=== PATIENT | female | born 1955 | race Caucasian/White ===

== ENCOUNTER 2023-12-25 13:14 | Inpatient (IN) | payer MEDICARE, BC, SELFPAY ==
[2023-12-25] VITALS (11 sets, daily range): BP systolic 109–161; BP diastolic 35–125; BMI 49.2
[2023-12-25 13:25] LABS: Glucose - Point of Care 82 mg/dl (70-99)
--- NOTE | 2023-12-25 14:30 | WOUNDNOTE ---
R BREAST (LATERAL SKIN FOLD)
--- NOTE | 2023-12-25 14:33 | WOUNDNOTE ---
L BREAST/UPPER ARM
--- NOTE | 2023-12-25 14:34 | WOUNDNOTE ---
R ANKLE/HEEL (LATERAL)
--- NOTE | 2023-12-25 14:39 | WOUNDNOTE ---
WO RN note: Patient admitted with CHF, DM. Patient transferred from [facility]. Patient having a cardiac cath today. Patient lives at home with her and stated she is current with VN.
See H&P for complete history.
PMH: L breast cancer s/p chemo and radiation, with lymph node removal 2003, C section x2, facture neck at age 13, neck pain, ex-smoker, sleep apnea, pneumonia, bronchitis, aortic stenosis, edema, HTN, venous stasis, stomach ulcers, diarrhea, renal
insufficiency, UTI, uterine fibroids, obesity, IDDM
Wound Location and type/assessment: Patient admitted with: multiple scattered scabbed scratch mayer on her body from dry skin and habit of scratching. L breast few small dermal ulcers from patient scratching (smaller then last wound photo from
05/2023), R lateral ankle dry scab suspect from pressure (stage 2 vs unstageable) from her recliner chair at home (she sleeps in a recliner) and R lateral scabbed skin fissure. Mild skin fold MASD breasts, abdominal/groin, sacral crease.
Appetite: currently NPO for procedure.
Pressure redistribution devices in place: [employer] Accumax. Patient turns self in bed.
Plan: Silicone border foam changed on L breast. Silicone border foam applied to R lateral ankle and R heel. Assisted VINNIE Patel and ROSA ELENA Swan with switching patient's bed to a [facility] wide air bed (patient transferred with walker and 2
assist). Heels off bed with pillow. Air chair cushion given. Instructed patient to make follow up appointment with her DIRECTOR OF EARLY CHILDHOOD EDUCATION for breast exam, mammogram.
Confirmed orders with SKINNY Gale and discussed with nurse.
Care plan to be updated and will follow as needed.
Recommended patient make appointment with cylinder press operator helper.
--- NOTE | 2023-12-25 15:03 | CM ---
Addendum entered by Stacy Felder RN 12/25/23 16:31:
Pending discharge transport was arranged with [facility] for pickup time of 3pm.
Addendum entered by Stacy Felder RN 12/25/23 15:12:
I spoke to Johanny at [facility] to confirm bed, . Johanny is contractor general engineering over the weekend if there are any needs.
Original Note:
Chart reviewed. Patient was a transfer from [facility] for a cardiac cath. Patient was living with her in a 2 ST, 1st floor set up, ambulates with a rolling walker. Patient was not current with VN but has used [facility] in the past. Patient was
setup to go to [facility] after her cardiac cath at [facility]. Patient will need ambulance transport set up. Report to be called to [phone], . Plan is for the patient to be discharged to [facility]
[place].
--- NOTE | 2023-12-25 15:45 | W.PN.CARDCBS ---
Today's Communication / Plan
-
LHC today, will need oupt w/u for valvular disease
wound care c/s
continue to hold BB for now trend bp
Impression / Plan
-
This is a summary, please see scanned H&P
PCP: Yrn Green MD
68 yo morbidly obese female, PMH severe valvular heart disease, HTN, NIDDM fo 20yrs, HLD, ANGELA untreated, obesity hypoventilation syndrome on home O2 2L, slip/fall 05/2023. She had another mechanical slip/fall and called 911, she presented to [facility] on
12/21/23. She had mild troponin elevation most likely d/t lying on floor for hours. She was also noted to have bradycardia with reported 2-1 AVB, BB was held. She is being transferred for [facility] today. She was evaluated for SNF placement prior to
transfer and is set up with a bed at [facility]. She has a severe ASA allergy with hive and ? anaphylaxis requiring hospitalization.
IMPRESSION/PLAN:
#Severe valvular heart disease - Echo with NL EF, severe p/m 70/41mmHg, and severe MS p/m 32/14mmHg
[facility] today diagnostic only d/t severe ASA allergy
outpt w/u for any valvular intervention, if she is even deemed a candidate with her comorbidities
#Bradycardia - 1deg AVB, asymptomatic, will continue to hold metoprolol xl 25mg, Check EKG now, will need outpt monitor
#Chronic respiratory failure/Obesity hypoventilation syndrome - continue 2L nc, HOB 30deg at all times
#NIDDM - continue lantus 80 bid, SSI, Check A1c 9.6% 09/2023
#HTN - continue lisinopril, trend bp while holding BB may need increased dose
#Mechanical Fall - PT/OT eval at [facility] plan for SNF at d/c
# ANGELA - 2L nc, will need sleep study as outpt
#Hyponatremia/Hyperkalemia - will trend
#Chronic UTI - odifours urine will check UA
#Psoriasis/wounds - wound care c/s
#CKD3a - trend Cr post cath, Cr 1.3
#Morbid obesity d/t excessive calories - wt loss encouraged
#chronic pain syndrome - PRN hydrocodone
#Dispo planning - after cath, plan for d/c SNF in am, CM working on transport
Progress Note - Director Of Billing
Subjective
Date of Service: December 25, 2023
no cp, sob at baseline, oob to commode with 2 person assist
Objective
Vital Signs and I&O:
Vital Signs
Temp Pulse Resp BP Pulse Ox
98.0 F 44 24 155/85 95
12/25/23 13:33 12/25/23 13:32 12/25/23 13:33 12/25/23 13:32 12/25/23 14:03
Vital Signs
Temp Pulse Resp BP Pulse Ox
98.0 F 44 24 155/85 95
12/25/23 13:33 12/25/23 13:32 12/25/23 13:33 12/25/23 13:32 12/25/23 14:03
Physical Exam
Physical Exam
AOX3, mild respiratory distress
S1, S2, RRR, /V harsh holosystolic murmur
fine bibasilar rales, no wheeze
SNTND bsx4 obese
multiple scratch mayer/wounds over entire body
[2023-12-25 16:06] LABS: Urine Albumin Trace (Neg - Trace); Urine Bilirubin Negative (Negative); Urine Character Clear (Clear); Urine Color Yellow; Urine Glucose Negative (Negative); Urine Ketone Negative (Negative); Urine Leukocyte 1+ (Negative); Urine Nitrite Positive (Negative); Urine Occult Blood Trace (Negative); Urine Urobilinogen Negative (Neg - 1+)
[2023-12-25 16:24] LABS: Urine Bacteria Many (Negative); Urine Red Blood Cell 0-2 /HPF (0-2)
--- NOTE | 2023-12-25 16:55 | ITS.CL.CATH ---
[facility] - Catheterization
Cardiac Catheterization
Procedure Report:
CARDIAC CATHETERIZATION REPORT
Date of Procedure: 12/25/2023
Referring: Giacomo Hurley MD
Indication: CHF
HEMODYNAMIC DATA
AO: 150/68
LV: Not done
LEFT VENTRICULOGRAPHY: Not done
CORONARY ANGIOGRAPHY
Dominance: Normal
Left Main: Normal
LAD: 30% proximal LAD stenosis with 60% mid LAD stenosis just distal to the takeoff of the large second diagonal branch.
Circumflex: Mild luminal irregularities
RCA: Large dominant mildly ectatic vessel with tandem 20% and 50-60% proximal stenoses. There is a 50% distal RCA lesion just past the crux. The large PDA and large RPL have mild luminal irregularities
Closure Device: None-the procedure was performed via the right radial artery using 5 Sinhala catheter
Radiation (mGy): 537
DAP (cm2.Gy): 40
Fluoroscopy time: 6.2 minutes
CONCLUSIONS
1: Known severe aortic stenosis not invasively evaluated
2: Noncritical CAD
3. Will electively evaluate for TAVR- she will undergo CTA in a few weeks then CTS evaluation
Copy to: Giacomo Hurley MD, Yrn Green MD
Jose Miguel Kauffman MD, [facility], [facility]
[2023-12-25] MEDS: CELEXA 20 MG PO (18:17)
[2023-12-25] MEDS: STERILE WATER FOR INJECTION 10 ML IV (18:17)
[2023-12-25] MEDS: ROCEPHIN 1000 MG IV (18:17)
--- NOTE | 2023-12-25 19:20 | PTCARENOTE ---
Pt received from [facility]. Pt denies any discomfort. Telemetry shows sinus bradycardia with first degree AV block at a rate @40's. Pt NPO for cardiac cath, accuchecks @80's. Pt seen by Liz Moreno RN for assessment of multiple skin issues, pt
transferred to [facility].Pt noted to have foul smelling cloudy orange urine sent for culture, positive for UTI, IV antibiotic started. Pt had cardiac cath via right radial site, radial band in place. No sign of bleeding or hematoma. Pt
OOB with assist of 2 and walker, pt steady on her feet but fell several days ago and is on fall precautions.
Plan to transfer to [facility] for rehab on 12/26/23 with lemon picker arranged for 3pm.
[2023-12-25 21:31] LABS: Glucose - Point of Care 146 mg/dl (70-99)
[2023-12-25] MEDS: LOVENOX 40 MG SC (22:52)
[2023-12-25] MEDS: HYDROPHOR 1 APPLIC TOPICAL (22:53)
[2023-12-25] MEDS: DESENEX/MITRAZOL/ZEASORB 1 APPLIC TOPICAL (22:53)
[2023-12-25] MEDS: LANTUS 0.800000000000000044 UNITS SC (22:57)
--- NOTE | 2023-12-25 23:22 | PTCARENOTE ---
Pt rec'd at change of shift awake,alert oriented. Sinus with first degree on telemetry. right radial band removed over several hours after bleeding occurred when taking out 3cc at 1999. Right radial site now clean and dry with no active bleeding or
hematoma present. Limb restriction reviewed with pt. Pt's HS blood sugar 146 requested HS snack. Pt given snack then given HS insulin. Pt incontinent of strong urine, perineal care given. Call aguilar placed within reach.
[2023-12-26 05:10] VITALS: BP 119/44
[2023-12-26] MEDS: VENTOLIN NEBULES 2.5 MG INH (05:56)
--- NOTE | 2023-12-26 06:24 | PTCARENOTE ---
Pt incont large amt of urine. complete bed bath given with bed linens changed. Pure wick placed. Pt has audible wheezing this morning throughout with harsh non prod cough. mn tx order obtained and given by resp. Unable to obtain am labs, phlebotomy
called for assist. call aguilar within pts reach.
pt remains sinus in 40's.
[2023-12-26 07:35] VITALS: BP 121/42
--- NOTE | 2023-12-26 07:45 | W.PN.UPDATE ---
Addendum entered and electronically signed by WANDA Gregorio 12/26/23 11:16:
Patient having periods of 2-1 heart block. Discharge plan canceled.
Addendum entered and electronically signed by Dewayne Joiner MD 12/26/23 09:59:
Patient seen and examined in collaboration with [employer]; agree with below.
-Stable for transfer to [facility] today.
-Outpatient TAVR evaluation.
Addendum entered and electronically signed by WANDA Gregorio 12/26/23 07:54:
Abnormal urinalysis
-The patient denies symptoms
-Urine culture pending
-She received 1 dose of Rocephin yesterday
Original Note:
Update Note
Progress Note Update
Background: 68F transferred from [facility]. She initially presented there for mechanical slip and fall. She was transferred for [facility].
Aortic stenosis, severe
-Not invasively evaluated by [facility] yesterday
-Right wrist site stable without hematoma
-Peak/mean gradient 70/41 mmHg
-The plan is for outpatient TAVR evaluation
Mitral stenosis, severe
-Peak/mean gradient 32/14 mmHg
Noncritical CAD by [facility], diagnostic cardiac catheterization 12/25/2023 due to ASA allergy
Bradycardia, hold metoprolol succinate, outpatient monitoring by her primary pharmacy service associate
Chronic respiratory failure in the setting of obesity/hypoventilation syndrome, continue 2 L nasal cannula
Type 2 diabetes mellitus requiring insulin, continue Lantus, HgbA1c pending, 6.7% 04/2023
Morbid obesity, BMI 49, she would benefit from weight loss, this affects all aspects of her care
Dispo: DC to SNF this afternoon
--- NOTE | 2023-12-26 07:54 | W.DS.TRANS ---
Addendum entered and electronically signed by Dewayne Joiner MD 12/26/23 09:58:
Agree with below.
Addendum entered and electronically signed by WANDA Gregorio 12/26/23 09:19:
Correction to below. Potassium supplementation discontinued as potassium is 5.0 this morning.
Original Note:
DC Summary - Communications Associate
-
Discharge Instructions:
Discharge Diagnosis/Procedures Cardiac catheterization
Diet Diabetic, Carb Controlled,Low Cholesterol
Activity No strenuous activity
Additional Activity See attached instructions.
Driving Restrictions No driving
Other Services PT,OT
Stop these medications: Hold metoprolol until seen by your clarification operator.
Instructions:
Stand-Alone Forms: DC Instructions- Cath/EP Lab
Changes to Home Medications: Yes
Discharge Medications:
DC Medications w/original date entered in [employer]
citalopram 20 mg tablet 20 mg PO QPM Depression 01/15/11
hydrocodone 7.5 mg-acetaminophen 300 mg tablet 1 tab PO DAILY PRN moderate pain 05/19/23
insulin glargine 100 unit/mL (3 mL) subcutaneous pen (Lantus Solostar U-100 Insulin) 80 unit SC BID 12/25/23
lisinopril 5 mg tablet 2.5 mg PO DAILY Blood pressure 12/25/23
oxymetazoline 0.05 % nasal spray (Afrin Sinus (oxymetazoline)) 2 spray intranasal Q12H 12/25/23
furosemide 20 mg tablet 20 mg PO DAILY #30 tabs 12/26/23
miconazole nitrate 2 % topical powder (Miconazorb AF) 1 applic topical BID #85 grams 12/26/23
potassium chloride 20 mEq tablet,extended release(part/cryst) 20 meq PO DAILY #30 tabs 12/26/23
white petrolatum 42 % topical ointment (Hydrophor) 1 applic topical BID #100 grams 12/26/23
Home Medication Changes
Metoprolol succinate was discontinued
New medications: Furosemide, miconazole powder, potassium chloride, Hydrophor
Pending Results: Yes
Additional Pending Results:
Urine culture
[2023-12-26 07:56] LABS: Hematocrit 35.7 % (37.0-47.0); Hemoglobin 11.4 g/dL (12.0-16.0); Mean Corp Hgb Conc. 31.9 g/dL (33.0-37.0); Mean Corpuscular Hgb 28.6 pg (27.0-31.0); Mean Corpuscular Volume 89.7 fL (81.0-99.0); Mean Platelet Volume 11.1 fL (7.4-10.4); Platelet Count 240 10^3/uL (130-400); Red Blood Cell Count 3.98 10^6/uL (4.20-5.40); Red Cell Dist. Width 16.2 % (11.5-14.5); White Blood Cell Count 8.4 10^3/uL (4.8-10.8)
[2023-12-26 08:10] LABS: Blood Urea Nitrogen 15 mg/dl (7-17); Calcium 8.6 mg/dl (8.4-10.2); Carbon Dioxide 27 mmol/L (22-30); Chloride 102 mmol/L (98-107); Estimated Creatinine Clearance 74 ml/min; Glucose 84 mg/dl (70-99); HDL Cholesterol 34 mg/dl; LDL Cholesterol, Calculated 74 mg/dl; Sodium 135 mmol/L (135-145); Total Cholesterol 128 mg/dl (50-199); Triglyceride 103 mg/dl (10-149); Very Low Density Lipoprotein 20 mg/dl (0-30); eGFR 55.07
[2023-12-26 08:11] LABS: Glucose - Point of Care 75 mg/dl (70-99)
[2023-12-26] MEDS: DESENEX/MITRAZOL/ZEASORB 1 APPLIC TOPICAL ×2 (09:23→22:34)
[2023-12-26] MEDS: ZESTRIL 2.5 MG PO (09:24)
[2023-12-26] MEDS: LASIX 20 MG PO (09:24)
[2023-12-26] MEDS: PLAVIX 75 MG PO (09:25)
[2023-12-26] MEDS: KCL 20 MEQ PO (09:25)
[2023-12-26] MEDS: LANTUS SC (09:26)
[2023-12-26] MEDS: HYDROPHOR 1 APPLIC TOPICAL ×2 (09:30→22:34)
[2023-12-26 11:03] LABS: Glycohemoglobin (HgbA1c) 7.3 % (4.0-5.6)
[2023-12-26 11:26] VITALS: BP 90/79
--- NOTE | 2023-12-26 11:51 | W.PN.UPDATE ---
Update Note
Progress Note Update
- Upon closer review of patient's telemetry, she has been having intermittent 2:1 AV block.
- Therefore, pacemaker implantation is recommended as she is on no antiarrhythmic or rate-controlling medications.
- Will cancel discharge to SNF and arrange pacemaker implantation for Thursday.
[2023-12-26 13:16] LABS: Glucose - Point of Care 98 mg/dl (70-99)
[2023-12-26 15:22] VITALS: BP 129/59
[2023-12-26] MEDS: CELEXA 20 MG PO (17:42)
[2023-12-26] MEDS: LOVENOX 40 MG SC (17:42)
[2023-12-26 17:44] LABS: Glucose - Point of Care 119 mg/dl (70-99)
--- NOTE | 2023-12-26 17:57 | PTCARENOTE ---
pt is in a 2:1 heart block and also SR on the monitor, HR in the 50s, VSS. pt offers no complaints at this time. pt has been resting in bed. pt educated on plan of care and pt verbalized understanding of plan. call aguilar within reach.
[2023-12-26 19:32] VITALS: BP 141/60
--- NOTE | 2023-12-26 21:07 | PTCARENOTE ---
Addendum entered by Zac Gustafson RN 12/26/23 21:14:
Assumed care. Patient comfortable at rest. Orthopneic, POX 96% on 2 liters, lungs diminished. SB HR 40's with a first degree HB. Patient has multiple scratches on her skin, healing scabs, MASD in groins, Panus, behind knees, washed with soap and
water, Micatin powder applied. Scratching her back causing her skin to bleed, encouraged her to stop, washed and powder applied. Two foams to right ankle and heel. Purwick draining large amounts of dark yellow urine, changed, hygiene provided. Call
aguilar in reach
Original Note:
Assumed care. Patient comfortable at rest. Orthopneic, POX 96% on 2 liters, lungs diminished. SR with a first degree HB. Patient has multiple scratches on her skin, healing scabs, MASD in groins, Panus, behind knees, washed with soap and water,
Micatin powder applied. Scratching her back causing her skin to bleed, encouraged her to stop, washed and powder applied. Two foams to right ankle and heel. Purwick draining large amounts of dark yellow urine, changed, hygiene provided. Call aguilar in
reach
[2023-12-26 21:43] LABS: Glucose - Point of Care 129 mg/dl (70-99)
[2023-12-26] MEDS: LANTUS 0.800000000000000044 UNITS SC (22:34)
[2023-12-26 22:39] VITALS: BP 163/64
[2023-12-27] VITALS (9 sets, daily range): BP systolic 136–172; BP diastolic 58–77
[2023-12-27 08:16] LABS: Glucose - Point of Care 65 mg/dl (70-99)
[2023-12-27] MEDS: HYDROPHOR 1 APPLIC TOPICAL ×2 (08:19→20:07)
[2023-12-27] MEDS: DESENEX/MITRAZOL/ZEASORB 1 APPLIC TOPICAL ×2 (08:19→20:07)
[2023-12-27] MEDS: PLAVIX 75 MG PO (08:20)
[2023-12-27] MEDS: LASIX 20 MG PO (08:20)
[2023-12-27] MEDS: ZESTRIL 2.5 MG PO (08:20)
[2023-12-27] MEDS: KCL 20 MEQ PO (08:20)
[2023-12-27 09:02] LABS: Glucose - Point of Care 143 mg/dl (70-99)
[2023-12-27] MEDS: LANTUS 0.800000000000000044 UNITS SC (09:11)
--- NOTE | 2023-12-27 10:54 | PTCARENOTE ---
Assumed care of pt from night RN. Pt received awake and alert, Ox3. VSS, CM shows SR/SB 40-60's, POX 99% on 2 liters. AM AccuCheck is 64, ot given 4 oz oj and ate breakfast. Post breakfast AccuCheck was 143, so Lantus given as per JAN. Right
radial site LG, with good CMS. Purewick in place draining dark yellow urine. LUE in place due to lymph nodes removed with past Breast CA. She denies any pain or discomfort at tis time, will continue to monitor closely, for PPM on Thursday.
[2023-12-27 12:49] LABS: Glucose - Point of Care 85 mg/dl (70-99)
--- NOTE | 2023-12-27 14:27 | W.PN.CD ---
Today's Communication / Plan
-
-Bradycardia with 2:1 AVB--heart rate down to 40s.
-Patient scheduled to undergo permanent pacemaker implantation tomorrow.
-Resume Toprol-XL 25 mg post-procedure.
-NPO after midnight.
Impression / Plan
-
68 yo morbidly obese female, PMH severe valvular heart disease, HTN, NIDDM fo 20yrs, HLD, ANGELA untreated, obesity hypoventilation syndrome on home O2 2L, slip/fall 05/2023. She had another mechanical slip/fall and called 911, she presented to [facility] on
12/21/23. She had mild troponin elevation most likely d/t lying on floor for hours. She was also noted to have bradycardia with reported 2-1 AVB, BB was held. She is being transferred for [facility] today. She was evaluated for SNF placement prior to
transfer and is set up with a bed at [facility]. She has a severe ASA allergy with hive and ? anaphylaxis requiring hospitalization.
IMPRESSION/PLAN:
#Severe valvular heart disease - Echo with NL EF, severe p/m 70/41mmHg, and severe MS p/m 32/14mmHg
-Outpt w/u for any valvular intervention, if she is even deemed a candidate with her comorbidities.
-Continue Lasix 20 mg PO daily.
#Bradycardia with 2:1 AVB--heart rate down to 40s.
-Patient scheduled to undergo permanent pacemaker implantation tomorrow.
-Resume Toprol-XL 25 mg post-procedure.
-NPO after midnight.
#Chronic respiratory failure/Obesity hypoventilation syndrome - continue 2L nc.
#NIDDM - continue lantus 80 bid, SSI, Check A1c 9.6% 09/2023
#HTN -fairly controlled.
-Continue lisinopril 2.5 mg daily and Lasix 20 mg daily.
#Mechanical Fall - PT/OT eval at [facility] plan for SNF at d/c
# ANGELA - 2L nc, will need sleep study as outpt
#Psoriasis/wounds - wound care.
#CKD3a -renal function relatively stable.
#Morbid obesity d/t excessive calories - wt loss encouraged
#chronic pain syndrome - PRN hydrocodone
Physical Exam
Vital Signs/Labs
Vital Signs
Temp Pulse Resp BP Pulse Ox
98 F 42 20 147/77 97
12/27/23 12:26 12/27/23 08:14 12/27/23 12:26 12/27/23 08:14 12/27/23 12:26
12/26/23 12/27/23 12/28/23
06:59 06:59 06:59
Actual Weight 142.45 kg
12/26/23 07:14
12/26/23 07:14
Triglycerides 103 mg/dl (10-149) 12/26/23 07:14
LDL Cholesterol, Calc 74 mg/dl 12/26/23 07:14
VLDL Cholesterol, Calc 20 mg/dl (0-30) 12/26/23 07:14
HDL Cholesterol 34 mg/dl 12/26/23 07:14
Physical Exam
Constitutional: No acute distress and Comfortable
EENT: Anicteric
Cardiovascular: Rhythm & rate is regular, Pedal edema present (Trace bilateral), Systolic murmur present (4/6) and S1S2 is normal
Respiratory: Respiratory effort normal and Lungs clear to auscul.
GI: Soft
Neuro/Psych: AO x 3
Other: Skin (Warm)
Data Reviewed
-
Date of Service: December 27, 2023
EKG: Tracing Personally Visualized and interpreted (Telemetry: 2:1 AV block)
[2023-12-27] MEDS: LOVENOX 40 MG SC (17:21)
[2023-12-27] MEDS: CELEXA 20 MG PO (17:21)
[2023-12-27 17:24] LABS: Glucose - Point of Care 84 mg/dl (70-99)
[2023-12-27 21:44] LABS: Glucose - Point of Care 82 mg/dl (70-99)
[2023-12-27] MEDS: LANTUS 0.400000000000000022 UNITS SC (22:33)
--- NOTE | 2023-12-27 23:24 | PTCARENOTE ---
Patient comfortable in bed watching TV. Second degree HB type II HR in the 40's, denies lightheadedness. Order received to give half dose of Lantus this evening, NPO for PPM Thursday, snack provided, HS blood sugar 82. Purwick changed and in place,
grossly incontinent of yellow urine. Multiple scabs and abrasions on legs, arms, chest, buttocks. Dressing intact to right foot, right ankle and left breast. Call aguilar in reach
[2023-12-28] VITALS (8 sets, daily range): BP systolic 118–163; BP diastolic 57–99
[2023-12-28] MEDS: DEXTROSE 50% SYRINGE 12.5 GRAMS IV ×4 (02:23→09:37)
[2023-12-28 02:25] LABS: Glucose - Point of Care 41 mg/dl (70-99)
--- NOTE | 2023-12-28 02:27 | PTCARENOTE ---
Called by patient, 'I feel hot'. Vitals obtained, stable, blood sugar 41. NPO for PPM today, half amp of D50 given
--- NOTE | 2023-12-28 02:36 | PTCARENOTE ---
Blood sugar 81, feeling better
[2023-12-28 02:40] LABS: Glucose - Point of Care 81 mg/dl (70-99)
[2023-12-28 04:53] LABS: Glucose - Point of Care 51 mg/dl (70-99)
[2023-12-28 05:27] LABS: Glucose - Point of Care 60 mg/dl (70-99)
--- NOTE | 2023-12-28 05:32 | PTCARENOTE ---
Blood sugar 51, half amp of D50 given. Rechecked blood sugar 61, another half amp given. Patient NPO PPM, 2% CHG wipes completed
[2023-12-28 05:44] LABS: Glucose - Point of Care 95 mg/dl (70-99)
--- NOTE | 2023-12-28 05:45 | PTCARENOTE ---
Patient blood sugar 95 following 1/2 amp of d50
--- NOTE | 2023-12-28 05:51 | PTCARENOTE ---
Dr. Joiner notified of patients low blood sugars overnight. Recheck blood sugar at 0700
[2023-12-28 07:06] LABS: Glucose - Point of Care 121 mg/dl (70-99)
[2023-12-28] MEDS: LANTUS SC (07:51)
[2023-12-28] MEDS: ZESTRIL 2.5 MG PO (08:21)
[2023-12-28] MEDS: PLAVIX 75 MG PO (08:21)
[2023-12-28] MEDS: LASIX 20 MG PO (08:31)
[2023-12-28] MEDS: DESENEX/MITRAZOL/ZEASORB 1 APPLIC TOPICAL ×2 (08:33→20:41)
[2023-12-28] MEDS: HYDROPHOR 1 APPLIC TOPICAL ×2 (08:33→20:42)
[2023-12-28] MEDS: KCL PO (08:36)
[2023-12-28 09:39] LABS: Glucose - Point of Care 53 mg/dl (70-99)
[2023-12-28 10:25] LABS: Glucose - Point of Care 66 mg/dl (70-99)
[2023-12-28 10:58] LABS: Glucose - Point of Care 88 mg/dl (70-99)
--- NOTE | 2023-12-28 11:40 | W.PN.CD ---
Today's Communication / Plan
-
- PPM today
Impression / Plan
-
68 yo morbidly obese female, [facility] severe valvular heart disease, HTN, NIDDM fo 20yrs, HLD, ANGELA untreated, obesity hypoventilation syndrome on home O2 2L, slip/fall 05/2023. She had another mechanical slip/fall and called 911, she presented to [facility] on
12/21/23. She had mild troponin elevation most likely d/t lying on floor for hours. She was also noted to have bradycardia with reported 2-1 AVB, BB was held. She is being transferred for [facility]. She was evaluated for SNF placement prior to transfer and
is set up with a bed at [facility]. She has a severe ASA allergy with hive and ? anaphylaxis requiring hospitalization.
IMPRESSION/PLAN:
#Bradycardia with 2:1 AVB--heart rate down to 40s.
-Patient scheduled to undergo permanent pacemaker implantation today.
-Resume Toprol-XL 25 mg post-procedure.
#Severe valvular heart disease - Echo with NL EF, severe p/m 70/41mmHg, and severe MS p/m 32/14mmHg
-Outpt w/u for any valvular intervention, if she is even deemed a candidate with her comorbidities.
-Continue Lasix 20 mg PO daily.
#Chronic respiratory failure/Obesity hypoventilation syndrome - continue 2L nc.
#NIDDM - continue lantus 80 bid, SSI, Check A1c 9.6% 09/2023
#HTN -fairly controlled.
-Continue lisinopril 2.5 mg daily and Lasix 20 mg daily.
#Mechanical Fall - PT/OT eval at [facility] plan for SNF at d/c
# ANGELA - 2L nc, will need sleep study as outpt
#Psoriasis/wounds - wound care.
#CKD3a -renal function relatively stable.
#Morbid obesity d/t excessive calories - wt loss encouraged
#chronic pain syndrome - PRN hydrocodone
Physical Exam
Vital Signs/Labs
Vital Signs
Temp Pulse Resp BP Pulse Ox
97.5 F 52 22 118/57 99
12/28/23 07:00 12/28/23 07:02 12/28/23 07:00 12/28/23 07:02 12/28/23 07:00
12/26/23 07:14
12/26/23 07:14
Triglycerides 103 mg/dl (10-149) 12/26/23 07:14
LDL Cholesterol, Calc 74 mg/dl 12/26/23 07:14
VLDL Cholesterol, Calc 20 mg/dl (0-30) 12/26/23 07:14
HDL Cholesterol 34 mg/dl 12/26/23 07:14
Physical Exam
Constitutional: No acute distress and Comfortable
EENT: Anicteric and Moist mucous membranes
Cardiovascular: Rhythm & rate is regular, Pedal edema is absent, JVD present and Systolic murmur present
Respiratory: Respiratory effort normal, Lungs clear to auscul. and Wheeze Absent
GI: Soft, Non tender and Normal bowel sounds
Neuro/Psych: Alert, Oriented and AO x 3
Other: Cath Site and Cardiac Device Site
Data Reviewed
-
Date of Service: December 28, 2023
Medical Decision Making: Reviewed Test Results, Independent Historian Assessment, Test Interpretation and Review of Case with other Provider
EKG: Tracing Personally Visualized and interpreted
Echo: Report Reviewed by me
Labs: Labs Reviewed by me
Old Records: Reviewed
--- NOTE | 2023-12-28 11:53 | ITS.CL.PACE ---
[facility] [employer] [facility] Guide - Pacemaker Implant
Pacemaker Implant
Procedure Report:
Dual Chamber Pacemaker Placement:
Ms. Campuzano is a very pleasant 68 yrs old woman with severe valvular heart disease / , HTN, NIDDM for 20yrs, HLD, ANGELA untreated, obesity, hypoventilation syndrome on home O2 2L, with high degree AV block and syncope and severe bradycardia and
second degree heart block type 2 and is recommended for PPM placement.�
Indications: Advanced heart block
Date of the Procedure: 12/28/2023
Pre-Operative Diagnosis: Complete heart block
Post-Operative Diagnosis: Complete heart block
Procedure Performed: DUAL CHAMBER PACEMAKER IMPLANTATION
Performing Physician:
Fred Stanley MD
Assistants:
EP staff
Anesthesia:
See anesthesia records
Pre-operative antibiotics:
Ancef
Detailed Description of the Procedure:
The patient was identified using hospital identification and informed consent obtained for the procedure. The risks were explained including, but not limited to: Bleeding, infection, arrhythmia, stroke, vascular/cardiac/lung puncture, surgery,
pacemaker dependency/device malfunction. All questions were answered.
The patient was brought to the electrophysiology laboratory in relatively stable condition in 6 hours of fasting state. Continuous electrocardiographic and hemodynamic monitoring was initiated. The initial rhythm was sinus rhythm with 2:1 AV block.
The procedure site was meticulously prepared with surgical scrub and allowed to dry with no pooling. Sterile draping was applied to cover the procedure site. The image intensifier was draped with sterile bag and positioned over the patient.
A surgical pause and time out was performed immediately prior to the procedure with review of her medical history, recent labs, allergies and medications with site of procedure identified and consent noted in the chart. Antibiotics pre operatively
given. All team members concurred.
Following infiltration with local anesthetic, the axillary vein was accessed using the fluoroscopic guidance. The vascular sheaths were introduced for lead access. The leads were advanced into the right ventricle and the right atrium.
The right ventricular lead was secured in position with an active fixation technique at the septal location.
The atrial lead was positioned in the right atrial appendage with passive fixation.
There was excellent sensing, pacing, and impedance from the leads, with no diaphragmatic stimulation at 10 V output. Bovie cautery, antibiotics, and fluoroscopy were used.
The sheaths were withdrawn, and the thresholds remained acceptable. The leads were secured in position at the venous entry site with 0-silk. A pursestring suture applied at the insertion site of the leads for hemostatic control. A pocket was
fashioned contiguous to the incision. The electrode terminals were connected to the pulse generator, which was placed into the pocket. The wound was irrigated thoroughly with antibiotic solution.
A Tyrx pouch was inserted around the wires and the generator inside the pocket.
The wound was closed in 3 layers using 2-0 VLoc then two layers of 4-0 monocryl sutures to the dermis. Steri-strips were applied externally and covered with Aquacel bandage.
Procedure End:
The procedure was tolerated well. A pressure dressing was applied
Estimated Blood loss:
<5 cc
Specimens Removed:
No cultures and no specimens were obtained. No intraoperative pathology was identified.
Urine output:
None
Packs / Drains/ Tubes:
None
Instrument / Sponge Count Correct:
Yes
Complications of the Procedure:
None
Condition of Patient at Time of Transfer:
Hemodynamically stable with no neurological or vascular compromise.
Device information:�
Generator: [employer]; Model: [id number]; Serial # [id number]�
Atrial Lead: [employer]; Model: 1944/46; Serial # [id number]�
Measured data in the right atrium was sensing of 2.1 mV, impedance of 450 ohms and threshold of 1.5 V at 1.0ms�
RV Lead: [employer]; Model: 2088TC/52; Serial # [id number]
Measured data in the RV lead was sensing of >12mV, impedance of 630 ohms and threshold of 0.5 V at 0.4ms�
Radu parameter settings were DDD 60-130
�����������
Summary:
Successful implantation of MRI compatible St Isra dual chamber pacemaker
Results/Recommendations:
-Please follow up CXR�
1. Please provide patient with adequate pain control�
Instructions to be given to patient:�
- Please follow up with [facility] at [address] [place] [address] ([phone]) to get your wound checked within 14 days of your discharge.
- Do not wet incision site until after it is evaluated at cardiology clinic. No showers until then. Sponge baths are OK.�
- Do not lift left elbow above shoulder, particularly with sudden jerking movements, for 1 month�
- Do not lift anything weighing more than 10 pounds with the left arm for 1 month�
- If you notice any fevers, shortness of breath, lightheadedness, chest pain, or worsening swelling in the wound site, please contact the arrhythmia clinic, contact your machine sole leveler, or present to the hospital for evaluation.�
Fred Stanley MD
Electrophysiology
--- NOTE | 2023-12-28 12:47 | CM ---
spoke to pt in room, she is s/p PPM today, dc plan remains SNF at [facility] when medically stable. referral faxed.
[2023-12-28 12:56] LABS: Glucose - Point of Care 50 mg/dl (70-99)
[2023-12-28 13:35] LABS: Glucose - Point of Care 53 mg/dl (70-99)
--- NOTE | 2023-12-28 13:37 | PTCARENOTE ---
Pt accucheck 50, she had 4 oz OJ and is now finishing her lunch. accucheck now 53, will give more juice and recheck. Pt denies any symptoms.
[2023-12-28 14:06] LABS: Glucose - Point of Care 64 mg/dl (70-99)
--- NOTE | 2023-12-28 14:14 | GLUCOSE ---
SITUATION:
Pt's accucheck 50, post ppm placement. Pt given 4 oz OJ, she also just got her lunch tray. Pt accucheck after she ate her lunch 53 at 1355. Pt then was drinking regular madison talat, accucheck rechecked 64.
BACKGROUND:
ASSESSMENT:
Pt asymptomatic.
RECOMMENDATION:
Berkley Perera notified, D10W IV drip ordered, while awaiting drip to be sent, accucheck rechecked, now 114. Will hold off on drip for now. Pt ordered dinner
[2023-12-28 15:00] LABS: Glucose 82 mg/dl (70-99)
--- NOTE | 2023-12-28 15:11 | CONSULT.STRU ---
Addendum entered and electronically signed by WANDA Alexander 01/08/24 14:17:
Reviewed Ms. Campuzano with the heart team in the SDM meeting. The team reviewed CT scan and discussed Transfemoral access. The team agreed a transfemoral approach could be attempted and she would not need to return for a repeat CT scan. Will
schedule for TAVR.
Original Note:
Consultation
-
Date/Time Consultation Requested: 12/28/2023 0830
Date/Time Consultation Performed: 12/28/2022 1400
Requesting Provider: Otto Kauffman MD
Performing Provider: WANDA Ivy
Reason for Consultation: Severe aortic stenosis/ TAVR evaluation.
Patient History
Physicians
Family Physician: Yrn Green
Outpatient Counter Maker: Giacomo Hurley - has only seen IP at [facility]
Primary Counter Maker: None
History of Present Illness
Patient is a 68yo morbidly obese female who was transferred from [facility] on Thursday for Cardiac Catheterization. She had a slipped when trying to sit on a kitchen chair and fell to the floor. She called 911 and presented to [facility] on 12/21/2023. She had a mild troponin elevation, which was most likely related to laying on the floor for several hours. She was also noted to have bradycardia with reported 2-1 AVB. They held her beta maritza and she was transferred to "[facility] for cardiac catheterization and pacemaker placement. She had cardiac cath on 12/25/2023, which demonstrated non-critical CAD. She had a PPM placed on 12/28. Previous echo (date unknown) documented in [facility] records has EF 60-65%,
mild outflow gradient, measuring 9mmHg at rest increasing to 18mmHg with Valsalva,Severe , peak velocity 4.2m/sec, PG/M/41. She also has severe MAC with severe MS PG/M/14, trace MR. Following her PPM, patient was seen laying in bed. She
had just finished lunch and was pleasant and appropriate. She offered no complaints. She denies OCHOA, SOB at rest, fatigue. This is different then what was documented in her [facility] medical record, which states she has been staying downstairs at
home because she gets too winded going up the steps. She denies orthopnea, PND, CP or palpitations. She states she sleeps in a recliner because it is a lift chair and easier to get out of. She also says she ambulates at home with a walker. Other
then previous [facility] hospitalization she has not followed with a fence post cutter. She states she gets regular dental care although does not recall her dentist name. Asked to call the office with the information when she returns home .
Past Medical History
Past Medical History: CAD (LAD: 30% proximal LAD stenosis with 60% mid LAD stenosis just distal to the takeoff of the large second diagonal branch.RCA: Large dominant mildly ectatic vessel with tandem 20% and 50-60% proximal stenoses. There is a
50% distal RCA lesion just past the cru), HTN, Hypercholesterolemia, IDDM (20 year history), ANGELA (untreated) and Valvular Disease (Aortic stenosis, mitral stenosis)
obesity hypoventilation syndrome on O2 2L at home
Chronic pain
Anxiety and depression
Osteoarthritis
Past Surgical History
Past Surgical History: Other
x2
Lymph node dissection
PPM- 12/28/2023
Dental History
States she goes to the dentist but does not know the name. Explained the need for dental clearance prior to aortic valve replacement and asked her to call the office with dental information.
Family History
Mother: N/A
Father: N/A
Social History
Alcohol: None
Drug: None
Tobacco: Former Smoker
Personal:
Living: With Family ( and adult son)
Employment: Not Employed
Allergies
Allergy/AdvReac Type Severity Reaction Status Date / Time
aspirin [Aspirin] Allergy Hives Verified 01/22/19 18:39
vancomycin [Vancomycin] Allergy Rash Verified 01/22/19 18:39
Home Medications
Medication Instructions Recorded Confirmed Type
citalopram 20 mg tablet 20 mg PO QPM Depression 01/15/11 12/25/23 History
hydrocodone 7.5 mg-acetaminophen 1 tab PO DAILY PRN moderate pain 05/19/23 12/25/23 History
300 mg tablet
insulin glargine 100 unit/mL (3 80 unit SC BID Diabetes 12/25/23 12/25/23 History
mL) subcutaneous pen (Lantus
Solostar U-100 Insulin)
lisinopril 5 mg tablet 2.5 mg PO DAILY Blood pressure 12/25/23 12/25/23 History
oxymetazoline 0.05 % nasal spray 2 spray intranasal Q12H Congestion 12/25/23 12/25/23 History
(Afrin Sinus (oxymetazoline))
furosemide 20 mg tablet 20 mg PO DAILY #30 tabs 12/26/23 Rx
miconazole nitrate 2 % topical 1 applic topical BID #85 grams 12/26/23 Rx
powder (Miconazorb AF)
white petrolatum 42 % topical 1 applic topical BID #100 grams 12/26/23 Rx
ointment (Hydrophor)
STS%
STS %: 3.87%
Review of Systems
-
History Source: Patient
General: Reports No Symptoms
HEENT: Reports No Symptoms
Respiratory: Reports Other (Home O2 at 2L/NC)
Cardiac: Reports No Symptoms
Abdomen/GI: Reports No Symptoms
: Reports No Symptoms
Musculoskeletal: Reports No Symptoms
Skin: Reports Itching
Neurological: Reports No Symptoms
Vascular: Reports No Symptoms
Physical Exam
Vital Signs
Temp 98.1 F 12/28/23 12:50
Temp route: Oral 12/28/23 12:50
Pulse 100 12/28/23 15:00
Rhythm: Type two second degree Bl 12/27/23 20:00
With- First Degree Heart Block 12/26/23 20:00
Resp Rate 20 12/28/23 12:50
Blood pressure 147/99 12/28/23 12:55
Blood pressure extremity used: Left forearm 12/28/23 12:50
Position: Lying 12/28/23 12:50
MAP (cuff-Jr Monitor) 108 12/28/23 12:55
SaO2 98 12/28/23 12:50
Nasal Cannula flow liters per minute 3 12/28/23 12:50
Oxygen Mode of Delivery Room air 12/26/23 07:07
Can the patient verbally communicate their pain? Yes 12/27/23 10:46
Actual Weight 142.45 kg 12/25/23 13:46
Body Mass Index (BMI) 49.2 12/25/23 13:46
Labs
12/26/23 07:14
12/28/23 14:36
Hemoglobin A1c 7.3 % (4.0-5.6) H 12/26/23 07:14
Urinalysis
Urine Color Yellow 12/25/23 15:43
Urine Clarity Clear (Clear) 12/25/23 15:43
Urine pH 5.0 (5.0-9.0) 12/25/23 15:43
Ur Specific [place] 1.020 (<1.030) 12/25/23 15:43
Urine Ketones Negative (Negative) 12/25/23 15:43
Ur Occult Blood Reflex Trace (Negative) A 12/25/23 15:43
Urine Bilirubin Negative (Negative) 12/25/23 15:43
Leukocyte Esterase Rfl 1+ (Negative) A 12/25/23 15:43
Urine RBC 0-2 /HPF (0-2) 12/25/23 15:43
Urine WBC (Reflex) 6-10 /HPF (0-5) 12/25/23 15:43
Ur Squamous Epith Cells 11-15 /LPF (Few) 12/25/23 15:43
Urine Bacteria (Reflex) Many (Negative) A 12/25/23 15:43
Urine Glucose Negative (Negative) 12/25/23 15:43
Urine Albumin (Reflex) Trace (Neg - Trace) 12/25/23 15:43
Diagnostic Studies
12/25/2023 Cardiac Cath
HEMODYNAMIC DATA
AO: 150/68
LV: Not done
LEFT VENTRICULOGRAPHY: Not done
CORONARY ANGIOGRAPHY
Dominance: Normal
Left Main: Normal
LAD: 30% proximal LAD stenosis with 60% mid LAD stenosis just distal to the takeoff of the large second diagonal branch.
Circumflex: Mild luminal irregularities
RCA: Large dominant mildly ectatic vessel with tandem 20% and 50-60% proximal stenoses.� There is a 50% distal RCA lesion just past the crux.� The large PDA and large RPL have mild luminal irregularities
Closure Device: None-the procedure was performed via the right radial artery using 5 Japanese catheter
Radiation (mGy): 537
DAP (cm2.Gy): 40
Fluoroscopy time: 6.2 minutes
CONCLUSIONS
1: Known severe aortic stenosis not invasively evaluated
2: Noncritical CAD
3. Will electively evaluate for TAVR- she will undergo CTA in a few weeks then CTS evaluation
Exam
General: Well Developed, No Apparent Distress and Comfortable
HEENT: Normocephalic
Neck: Trachea Midline
Respiratory: Clear (diminished bilateral bases)
Cardiac: S1/S2, Regular Rhythm and Murmur (Grade III/ murmur)
GI: Soft, Non Tender, Non Distended and Normal Bowel Sounds
Rectal: Deferred by Provider
Skin: Warm, Dry (scabbed areas bilateral LE) and Other (right chest wall pressure dressing-C/D/I)
Neuro: AO x 3
Extremities: Pulses (+2DP pulses bilateral)
Psych: Calm
Assessment / Plan
-
Assessment: Severe Aortic stenosis
Plan:
Reviewed the pathophysiology of aortic stenosis with the patient. Explained the treatment options of SAVR and TAVR. Explained the TAVR evaluation process including follow up BMP, CT TAVR scan, CT surgery consult and Heart Team discussion. Provided
with script for BMP next week, script and appointment for CT TAVR, Consult appointment with Dr. Louie and a copy of the TAVR education booklet with contact information. Allowed for and answered questions.
Severe Aortic stenosis:
��������������� Continue evaluation for TAVR as outpatient
��������������� BMP 01/01/2024 at [facility]
��������������� CT TAVR scan 01/11/2024 at 11:30 at
��������������� CT surgery consult with Dr. Louie 01/06/2024
��������������� Heart team discussion at [facility]
ASA allergy- hives, itching--> will need to discuss antiplatelet treatment for TAVR
Dental Clearance
Data Reviewed
-
EKG: Report Reviewed by me (Atrial sensed, ventricular paced rhythm 86BPM)
Mathematics Teacher: Report Reviewed by me (non-critical CAD)
Labs: Labs Reviewed by me (H/H: 11.4/35.7, BUN/Creat: 15/1.1, GFR 55.07)
Old Records: Requested (echocardiogram images and report requested from [facility])
Total Time Spent with Patient (in minutes): 45
--- NOTE | 2023-12-28 15:45 | PN.DE.MGMTRT ---
Insulin Management
- -
12/28/2023: Diabetes Management Consult
68 female with PMH that includes: Severe valvular heart disease, HTN, NIDDM fo 20yrs, HLD, ANGELA untreated, Morbid Obesity hypoventilation syndrome on home O2 2L, slip/fall 05/2023, Chronic UTI, Psoriasis/wounds, CKD3a Cr 1.1.
Hospital stay c/b severe bradycardia and 2nd degree heart block type 2 s/p PPM placement.�A1C 7.3%, (9.6% on 09/2023), was taking Lantus 80 units bid INTERNAL MEDICINE NURSE.
We are consulted for management of hypoglycemia, as low as 41mg/dl.
Diabetes regimen includes: High Corrective insulin and Lantus 80 units BID, pt has had recurrent episodes of Hypoglycemia throughout the day, Pt received reduced Lantus dose of 40 units x1 @ HS and has continued to experience hypoglycemia while NPO,
requiring multiple IV Dextrose treatments.
Discussed with CV team, rec IV Dextrose infusion overnight for management of persistent Hypoglycemia.
Will place Lantus and corrective insulin on hold at this time.
Will reassess in AM and cautiously resume Lantus or start oral regimen if diet as been restarted
Diabetes History
- -
Type of Diabetes: 2 requiring insulin
Pre-Admission Diabetes Regimen
Lab Results
Hemoglobin A1c 7.3 % (4.0-5.6) H 12/26/23 07:14
Insulin Pump Settings
IP Diabetes Regimen
12/27/23 12/27/23 12/28/23
17:19 21:43 02:19
Glucose
POC Glucose 84 82 41 L*
12/28/23 12/28/23 12/28/23
02:36 04:51 05:26
Glucose
POC Glucose 81 51 L* 60 L
12/28/23 12/28/23 12/28/23
05:43 07:05 09:34
Glucose
POC Glucose 95 121 H 53 L*
12/28/23 12/28/23 12/28/23
09:56 10:48 12:55
Glucose
POC Glucose 66 L 88 50 L*
12/28/23 12/28/23 12/28/23
13:35 14:04 14:36
Glucose 82
POC Glucose 53 L* 64 L
Meal type: Breakfast
Patient Education
[2023-12-28] MEDS: ANCEF 5 IV ×2 (16:36→23:50)
[2023-12-28 16:40] LABS: Glucose - Point of Care 114 mg/dl (70-99)
[2023-12-28] MEDS: CELEXA 20 MG PO (17:16)
[2023-12-28] MEDS: LOVENOX 40 MG SC (17:16)
[2023-12-28] MEDS: TYLENOL 650 MG PO (20:57)
[2023-12-28 21:43] LABS: Glucose - Point of Care 137 mg/dl (70-99)
[2023-12-28] MEDS: FLUSH (NSS) 2 FLUSH IV (23:50)
[2023-12-29] VITALS (8 sets, daily range): BP systolic 126–163; BP diastolic 73–100; PULSE 74; O2SAT 96
--- NOTE | 2023-12-29 02:54 | PTCARENOTE ---
late note: OOB in chair at change of shift. Max assist of 2 to get her back to bed. Can be incontinent of urine. Took tylenol for c/o of headache at [address] relief. [address]ling in place to right arm.
[2023-12-29] MEDS: TYLENOL 650 MG PO (03:49)
[2023-12-29 04:21] LABS: Hematocrit 37.7 % (37.0-47.0); Hemoglobin 11.9 g/dL (12.0-16.0); Mean Corp Hgb Conc. 31.6 g/dL (33.0-37.0); Mean Corpuscular Hgb 28.5 pg (27.0-31.0); Mean Corpuscular Volume 90.4 fL (81.0-99.0); Mean Platelet Volume 10.8 fL (7.4-10.4); Platelet Count 242 10^3/uL (130-400); Red Blood Cell Count 4.17 10^6/uL (4.20-5.40); White Blood Cell Count 7.7 10^3/uL (4.8-10.8)
[2023-12-29 04:49] LABS: Blood Urea Nitrogen 17 mg/dl (7-17); Calcium 8.9 mg/dl (8.4-10.2); Carbon Dioxide 33 mmol/L (22-30); Chloride 97 mmol/L (98-107); Estimated Creatinine Clearance 81 ml/min; Glucose 68 mg/dl (70-99); Potassium 5.1 mmol/L (3.5-5.1); Sodium 134 mmol/L (135-145); eGFR > 60.00
[2023-12-29 07:34] LABS: Glucose - Point of Care 46 mg/dl (70-99)
[2023-12-29] MEDS: KCL 20 MEQ PO (08:25)
[2023-12-29] MEDS: ZESTRIL 2.5 MG PO (08:25)
[2023-12-29] MEDS: LASIX 20 MG PO (08:25)
[2023-12-29] MEDS: PLAVIX 75 MG PO (08:25)
[2023-12-29] MEDS: HYDROPHOR 1 APPLIC TOPICAL ×2 (08:26→23:11)
[2023-12-29] MEDS: TOPROL XL 25 MG PO (08:26)
[2023-12-29 09:03] LABS: Glucose - Point of Care 121 mg/dl (70-99)
--- NOTE | 2023-12-29 10:03 | PN.DE.MGMTRT ---
Insulin Management
- -
12/28/2023: Diabetes Management Consult
68 female with PMH that includes: Severe valvular heart disease, HTN, NIDDM fo 20yrs, HLD, ANGELA untreated, Morbid Obesity hypoventilation syndrome on home O2 2L, slip/fall 05/2023, Chronic UTI, Psoriasis/wounds, CKD3a Cr 1.1.
Hospital stay c/b severe bradycardia and 2nd degree heart block type 2 s/p PPM placement.�A1C 7.3%, (9.6% on 09/2023), was taking Lantus 80 units bid BODY REPAIRER.
We are consulted for management of hypoglycemia, as low as 41mg/dl.
Diabetes regimen includes: High Corrective insulin and Lantus 80 units BID, pt has had recurrent episodes of Hypoglycemia throughout the day, Pt received reduced Lantus dose of 40 units x1 @ HS and has continued to experience hypoglycemia while NPO,
requiring multiple IV Dextrose treatments.
Discussed with CV team, rec IV Dextrose infusion overnight for management of persistent Hypoglycemia.
Will place Lantus and corrective insulin on hold at this time.
Will reassess in AM and cautiously resume Lantus or start oral regimen if diet as been restarted
12/29/2023 Diabetes Management Follow up
Spoke with patient, she states she doesn't remember how she got to 80 units of lantus BID. She states she never took oral medication or novolog. She states she is not eating differently here versus home.
Due to patient glucose of 46 this AM will not add lantus. I did discuss with her she will NOT resume 80 units lantus BID but will start 20 units novolog in AM ONLY tomorrow and metformin 500 mg BID, starting tomorrow. Patient states she does have a
working glucose monitor at home. Instructed to test glucose before each meal and bedtime until seen by primary doctor. IF patient is discharged she should start 20 lantus in AM with metformin 500 BID and follow with primary doctor within 2 to 3
days.
Diabetes History
- -
Type of Diabetes: 2 requiring insulin
Pre-Admission Diabetes Regimen
12/29/23
04:00
Creatinine 1.0
Lab Results
Hemoglobin A1c 7.3 % (4.0-5.6) H 12/26/23 07:14
Insulin Pump Settings
IP Diabetes Regimen
12/28/23 12/28/23 12/28/23
09:56 10:48 12:55
Glucose
POC Glucose 66 L 88 50 L*
12/28/23 12/28/23 12/28/23
13:35 14:04 14:36
Glucose 82
POC Glucose 53 L* 64 L
12/28/23 12/28/23 12/29/23
16:39 21:42 04:00
Glucose 68 L
POC Glucose 114 H 137 H
12/29/23 12/29/23
07:33 09:02
Glucose
POC Glucose 46 L* 121 H
Meal type: Breakfast
Meal type: Breakfast
Amount consumed: 90%
Patient Education
--- NOTE | 2023-12-29 10:11 | GLUCOSE ---
SITUATION:
Pt's accucheck this morning before breakfast was 46, pt denies symptoms, 4 oz OJ given and the Pt received her breakfast tray. Accucheck rechecked after Pt was finished eating her breakfast = 121
BACKGROUND:
ASSESSMENT:
Pt asymptomatic with low BS
RECOMMENDATION:
--- NOTE | 2023-12-29 11:44 | W.PN.HOSP.TC ---
Today's Communication/Plan
-
see A/P
Assessment / Plan
Assessment / Plan
HPI: 68 yo morbidly obese female, PMH severe valvular heart disease, HTN, IDDM, HLD, ANGELA, obesity hypoventilation syndrome on home O2 2L, slip/fall 05/2023; p/w mechanical slip/fall and presented to [facility] on 12/21/23. She had mild troponin elevation
most likely d/t lying on floor for hours. She was also noted to have bradycardia with reported 2-1 AVB, BB was held.
She was transferred for [facility]. She was evaluated for SNF placement prior to transfer and is set up with a bed at [facility]. She has a severe ASA allergy with hive and ? anaphylaxis requiring hospitalization.
She was under the cardiology service for bradycardia and underwent PPM.
Transferred to the hospitalist service for hypoglycemia and continued medical care.
A/P:
# Bradycardia with 2:1 AVB (HR down to 40s).
s/p PPM placement 12/29
Resumed Toprol-XL 25 mg post-procedure.
Card on board
# Severe valvular heart disease
Echo with NL EF, severe and severe MS
Outpt w/u for valvular intervention if she is even deemed a candidate with her comorbidities.
Continue Lasix 20 mg PO daily.
# Chronic hypoxic respiratory failure/Obesity hypoventilation syndrome
# ANGELA, will need sleep study as outpt
continue 2L NC (home requirement).
# IDDM
Resumed insulin, adjusting doses due to hypoglycemia
A1c 7.3%
DM CATERER'S AIDE on board
# HTN -fairly controlled.
Continue lisinopril 2.5 mg daily and Lasix 20 mg daily.
# Mechanical Fall
PT/OT eval at [facility] plan for SNF at d/c
# Psoriasis/wounds - wound care.
# Morbid obesity d/t excessive calories - wt loss encouraged
BMI 49
# chronic pain syndrome - PRN hydrocodone
DVT ppx: Lovenox SQ
FC
Anticipated Discharge: 24 - 48 hours
Subjective/Interval History
-
Date of Service: December 29, 2023
Objective Data
-
Labs:
Laboratory Results
12/29/23
04:00
WBC 7.7
Hgb 11.9 L
Hct 37.7
Plt Count 242
Sodium 134 L
Potassium 5.1
Chloride 97 L
Carbon Dioxide 33 H
BUN 17
Creatinine 1.0
Glucose 68 L
Calcium 8.9
Vital Signs:
Vital Signs
Temp Pulse Resp BP Pulse Ox
36.6 C 92 20 130/74 95
12/29/23 03:37 12/29/23 06:00 12/29/23 03:37 12/29/23 03:34 12/29/23 03:37
I&O
12/28/23 12/29/23 12/30/23
06:59 06:59 06:59
Intake Total 240 / 240
Output Total 1300 / 1300 1800 / 1800
Balance -1300 / -1300 -1800 / -1800 240 / 240
Review of Systems
-
All other systems: Reviewed and negative
Physical Exam
-
General: Well Developed, Well Nourished, Comfortable, Respiratory Distress (chronic), Conversant and Morbidly Obese
HEENT: Normocephalic and Oxygen (2L NC)
Respiratory: Clear to Auscultation and Non Labored Respirations; Negative Accessory Resp Muscle Use
Cardiac: Regular Rhythm, S1/S2 and Murmur
GI: Soft, Nontender, Nondistended and Normal Bowel Sounds
Neuro: Awake and Alert
Psych: Calm and Intact Judgement/Insight
Data Reviewed
-
Labs: Labs Reviewed by me
--- NOTE | 2023-12-29 11:49 | W.PN.CD ---
Today's Communication / Plan
-
- PPM is working normally.
- A sensed and V paced rhythm.
Impression / Plan
-
68 yo morbidly obese female, [facility] severe valvular heart disease, HTN, NIDDM fo 20yrs, HLD, ANGELA untreated, obesity hypoventilation syndrome on home O2 2L, slip/fall 05/2023. She had another mechanical slip/fall and called 911, she presented to [facility] on
12/21/23. She had mild troponin elevation most likely d/t lying on floor for hours. She was also noted to have bradycardia with reported 2-1 AVB, BB was held. She is being transferred for [facility]. She was evaluated for SNF placement prior to transfer and
is set up with a bed at [facility]. She has a severe ASA allergy with hive and ? anaphylaxis requiring hospitalization.
IMPRESSION/PLAN:
#NIDDM
- On lantus 80 bid - hypoglycemia - on hold
- SSI, Check A1c 9.6% 09/2023
- s/p D50 boluses.
- Will transfer to Hospitalist for further care
#Bradycardia with 2:1 AVB--heart rate down to 40s.
-s/p permanent pacemaker implantation 12/28/23 - [employer]
-Toprol-XL 25 mg post-procedure.
#Severe valvular heart disease - Echo with NL EF, severe p/m 70/41mmHg, and severe MS p/m 32/14mmHg
-Outpt w/u for any valvular intervention, if she is even deemed a candidate with her comorbidities.
-Continue Lasix 20 mg PO daily.
#Chronic respiratory failure/Obesity hypoventilation syndrome - continue 2L nc.
#HTN -fairly controlled.
-Continue lisinopril 2.5 mg daily and Lasix 20 mg daily.
#Mechanical Fall - PT/OT eval at [facility] plan for SNF at d/c
# ANGELA - 2L nc, will need sleep study as outpt
#Psoriasis/wounds - wound care.
#CKD3a -renal function relatively stable.
#Morbid obesity d/t excessive calories - wt loss encouraged
#chronic pain syndrome - PRN hydrocodone
Physical Exam
Vital Signs/Labs
Vital Signs
Temp Pulse Resp BP Pulse Ox
98 F 92 20 130/74 95
12/29/23 03:37 12/29/23 06:00 12/29/23 03:37 12/29/23 03:34 12/29/23 03:37
12/29/23 04:00
12/29/23 04:00
Triglycerides 103 mg/dl (10-149) 12/26/23 07:14
LDL Cholesterol, Calc 74 mg/dl 12/26/23 07:14
VLDL Cholesterol, Calc 20 mg/dl (0-30) 12/26/23 07:14
HDL Cholesterol 34 mg/dl 12/26/23 07:14
Physical Exam
Constitutional: No acute distress and Comfortable
EENT: Anicteric and Moist mucous membranes
Cardiovascular: Rhythm & rate is regular, Pedal edema is absent, JVD pressure is normal and Systolic murmur present
Respiratory: Respiratory effort normal, Lungs clear to auscul. and Wheeze Absent
GI: Soft, Distention absent and Non tender
Neuro/Psych: Alert, Oriented and AO x 3
Other: Cardiac Device Site (pressure dressing removed. )
Data Reviewed
-
Date of Service: December 29, 2023
Medical Decision Making: Reviewed Test Results, Tests Ordered, Independent Historian Assessment, Test Interpretation and Review of Case with other Provider
EKG: Tracing Personally Visualized and interpreted
Echo: Report Reviewed by me
X-Ray/CT/US/MRI/NUC/PET: Image Personally Visualized and interpreted
Labs: Labs Reviewed by me
Old Records: Reviewed
--- NOTE | 2023-12-29 11:53 | W.CARD.DEVCH ---
Cardiac Device Check
-
Device: Pacemaker
Draw Frame Runner: [employer]
The patient's device was interrogated with assistance of the device inside account representative followed by a complete physician review. The device had normal function. No abnormalities seen.
[2023-12-29 11:56] LABS: Glucose - Point of Care 118 mg/dl (70-99)
[2023-12-29] MEDS: DESENEX/MITRAZOL/ZEASORB 1 APPLIC TOPICAL ×2 (13:15→23:11)
[2023-12-29 17:14] LABS: Glucose - Point of Care 158 mg/dl (70-99)
[2023-12-29] MEDS: CELEXA 20 MG PO (17:22)
[2023-12-29] MEDS: LOVENOX 40 MG SC (17:22)
[2023-12-29 21:48] LABS: Glucose - Point of Care 239 mg/dl (70-99)
--- NOTE | 2023-12-29 23:23 | PTCARENOTE ---
Pt rec'd at change of shift in bed, no complaints. HS accu check 239. grossly incont of urine. Pure wick placed over night. V paced on telemetry.
[2023-12-30 04:46] VITALS: BP 143/78
[2023-12-30 05:33] LABS: Blood Urea Nitrogen 18 mg/dl (7-17); Calcium 8.8 mg/dl (8.4-10.2); Carbon Dioxide 32 mmol/L (22-30); Chloride 95 mmol/L (98-107); Estimated Creatinine Clearance 81 ml/min; Glucose 136 mg/dl (70-99); Hematocrit 35.6 % (37.0-47.0); Hemoglobin 11.2 g/dL (12.0-16.0); Mean Corp Hgb Conc. 31.5 g/dL (33.0-37.0); Mean Corpuscular Hgb 28.4 pg (27.0-31.0); Mean Corpuscular Volume 90.1 fL (81.0-99.0); Mean Platelet Volume 10.9 fL (7.4-10.4); Platelet Count 250 10^3/uL (130-400); Potassium 5.1 mmol/L (3.5-5.1); Red Blood Cell Count 3.95 10^6/uL (4.20-5.40); Red Cell Dist. Width 15.9 % (11.5-14.5); Sodium 133 mmol/L (135-145); White Blood Cell Count 6.4 10^3/uL (4.8-10.8); eGFR > 60.00
[2023-12-30 07:56] LABS: Glucose - Point of Care 116 mg/dl (70-99)
--- NOTE | 2023-12-30 08:25 | W.PN.CD ---
Today's Communication / Plan
-
- Stable for discharge from cardiac stand point.
- Follow up in 2 weeks.
Impression / Plan
-
68 yo morbidly obese female, H severe valvular heart disease, HTN, NIDDM fo 20yrs, HLD, ANGELA untreated, obesity hypoventilation syndrome on home O2 2L, slip/fall 05/2023. She had another mechanical slip/fall and called 911, she presented to [facility] on
12/21/23. She had mild troponin elevation most likely d/t lying on floor for hours. She was also noted to have bradycardia with reported 2-1 AVB, BB was held. She is being transferred for [facility]. She was evaluated for SNF placement prior to transfer and
is set up with a bed at [facility]. She has a severe ASA allergy with hive and ? anaphylaxis requiring hospitalization.
IMPRESSION/PLAN:
#NIDDM
- as per medicine care.
#Bradycardia with 2:1 AVB--heart rate down to 40s.
-s/p permanent pacemaker implantation 12/28/23 - [facility]
-Toprol-XL 25 mg post-procedure.
-A sesned V paced tachycardia noted - could be related to glucose
#Severe valvular heart disease - Echo with NL EF, severe p/m 70/41mmHg, and severe MS p/m 32/14mmHg
-Outpt w/u for any valvular intervention, if she is even deemed a candidate with her comorbidities.
-Continue Lasix 20 mg PO daily.
#Chronic respiratory failure/Obesity hypoventilation syndrome
- continue 2L nc.
#HTN -fairly controlled.
-Continue lisinopril 2.5 mg daily and Lasix 20 mg daily.
#Mechanical Fall - PT/OT eval at [facility] plan for SNF at d/c
# ANGELA - 2L nc, will need sleep study as outpt
#Psoriasis/wounds - wound care.
#CKD3a -renal function relatively stable.
#Morbid obesity d/t excessive calories - wt loss encouraged
#chronic pain syndrome - PRN hydrocodone
Physical Exam
Vital Signs/Labs
Vital Signs
Temp Pulse Resp BP Pulse Ox
97.8 F 75 24 126/73 96
12/30/23 04:46 12/30/23 04:00 12/30/23 04:46 12/29/23 22:21 12/29/23 20:04
12/30/23 04:56
12/30/23 04:56
Magnesium 2.0 mg/dl (1.6-2.3) 12/30/23 04:56
Triglycerides 103 mg/dl (10-149) 12/26/23 07:14
LDL Cholesterol, Calc 74 mg/dl 12/26/23 07:14
VLDL Cholesterol, Calc 20 mg/dl (0-30) 12/26/23 07:14
HDL Cholesterol 34 mg/dl 12/26/23 07:14
Physical Exam
Constitutional: No acute distress and Comfortable
EENT: Anicteric and Moist mucous membranes
Cardiovascular: Rhythm & rate is regular, Pedal edema present, JVD present and Systolic murmur present
Respiratory: Respiratory effort normal, Wheeze Absent and Crackles Absent
GI: Soft, Non tender and Normal bowel sounds
Neuro/Psych: Alert, Oriented, AO x 3 and Motor deficits absent
Other: Cardiac Device Site
Data Reviewed
-
Date of Service: December 30, 2023
Medical Decision Making: Reviewed Test Results, Independent Historian Assessment and Test Interpretation
EKG: Tracing Personally Visualized and interpreted
Echo: Report Reviewed by me
Labs: Labs Reviewed by me
Old Records: Reviewed
--- NOTE | 2023-12-30 08:29 | PN.DE.MGMTRT ---
Insulin Management
- -
12/28/2023: Diabetes Management Consult
68 female with PMH that includes: Severe valvular heart disease, HTN, NIDDM fo 20yrs, HLD, ANGELA untreated, Morbid Obesity hypoventilation syndrome on home O2 2L, slip/fall 05/2023, Chronic UTI, Psoriasis/wounds, CKD3a Cr 1.1.
Hospital stay c/b severe bradycardia and 2nd degree heart block type 2 s/p PPM placement.�A1C 7.3%, (9.6% on 09/2023), was taking Lantus 80 units bid [employer]PER[employer].
We are consulted for management of hypoglycemia, as low as 41mg/dl.
Diabetes regimen includes: High Corrective insulin and Lantus 80 units BID, pt has had recurrent episodes of Hypoglycemia throughout the day, Pt received reduced Lantus dose of 40 units x1 @ HS and has continued to experience hypoglycemia while NPO,
requiring multiple IV Dextrose treatments.
Discussed with CV team, rec IV Dextrose infusion overnight for management of persistent Hypoglycemia.
Will place Lantus and corrective insulin on hold at this time.
Will reassess in AM and cautiously resume Lantus or start oral regimen if diet as been restarted
12/29/2023 Diabetes Management Follow up
Spoke with patient, she states she doesn't remember how she got to 80 units of lantus BID. She states she never took oral medication or novolog. She states she is not eating differently here versus home.
Due to patient glucose of 46 this AM will not add lantus. I did discuss with her she will NOT resume 80 units lantus BID but will start 20 units novolog in AM ONLY tomorrow and metformin 500 mg BID, starting tomorrow. Patient states she does have a
working glucose monitor at home. Instructed to test glucose before each meal and bedtime until seen by primary doctor. IF patient is discharged she should start 20 lantus in AM with metformin 500 BID and follow with primary doctor within 2 to 3
days.
12/30/2023 Diabetes Management Follow up
After one glucose 46 @ 7:33AM yesterday glucose remained stable 118, 158. Glucose trended up to 239 at HS. Will reduce AM lantus to 15 units and start metformin 500 mg BID. If patient discharged should continue this regimen. Instructed patient
to test glucose before each meal and bedtime and report in 2 to 3 days glucose results to primary doctor.
Diabetes History
- -
Type of Diabetes: 2 requiring insulin
Pre-Admission Diabetes Regimen
12/30/23
04:56
Creatinine 1.0
Lab Results
Hemoglobin A1c 7.3 % (4.0-5.6) H 12/26/23 07:14
Insulin Pump Settings
IP Diabetes Regimen
12/29/23 12/29/23 12/29/23
09:02 11:54 17:13
Glucose
POC Glucose 121 H 118 H 158 H
12/29/23 12/30/23 12/30/23
21:46 04:56 07:55
Glucose 136 H
POC Glucose 239 H 116 H
Meal type: Dinner
Meal type: Breakfast
Amount consumed: 100%
Amount consumed: 90%
Patient Education
--- NOTE | 2023-12-30 08:30 | W.PN.HOSP.TC ---
Addendum entered and electronically signed by Brittney Rueda MD 12/30/23 12:41:
Total DC time 35 minutes
Original Note:
Today's Communication/Plan
-
for SNF
Assessment / Plan
Assessment / Plan
HPI: 68 yo morbidly obese female, PMH severe valvular heart disease, HTN, IDDM, HLD, ANGELA, obesity hypoventilation syndrome on home O2 2L, slip/fall 05/2023; p/w mechanical slip/fall and presented to [facility] on 12/21/23. She had mild troponin elevation
most likely d/t lying on floor for hours. She was also noted to have bradycardia with reported 2-1 AVB, BB was held.
She was transferred for [facility]. She was evaluated for SNF placement prior to transfer and is set up with a bed at [facility]. She has a severe ASA allergy with hive and ? anaphylaxis requiring hospitalization.
She was under the cardiology service for bradycardia and underwent PPM.
Transferred to the hospitalist service for hypoglycemia and continued medical care.
A/P:
# Bradycardia with 2:1 AVB (HR down to 40s).
s/p PPM placement 12/29
Resumed Toprol-XL 25 mg post-procedure.
Card on board
# Severe valvular heart disease
Echo with NL EF, severe and severe MS
Outpt w/u for valvular intervention if she is even deemed a candidate with her comorbidities.
Continue Lasix 20 mg PO daily.
# Chronic hypoxic respiratory failure/Obesity hypoventilation syndrome
# ANGELA, will need sleep study as outpt
continue 2L NC (home requirement).
# IDDM
Resumed insulin, adjusting doses due to hypoglycemia: decrease RESERVOIR ENGINEER Lantus 80 units BID to 15 units AM ONLY, added metformin 500 mg BID
A1c 7.3%
DM ROAD CONDUCTOR on board
# HTN -fairly controlled.
Continue lisinopril 2.5 mg daily and Lasix 20 mg daily.
# Mechanical Fall
PT/OT eval at [facility] plan for SNF at d/c
# Psoriasis/wounds - wound care.
# Morbid obesity d/t excessive calories - wt loss encouraged
BMI 49
# chronic pain syndrome - PRN hydrocodone
DVT ppx: Lovenox SQ
FC
Anticipated Discharge: Today
Subjective/Interval History
-
Date of Service: December 30, 2023
Objective Data
-
Labs:
Laboratory Results
12/30/23
04:56
WBC 6.4
Hgb 11.2 L
Hct 35.6 L
Plt Count 250
Sodium 133 L
Potassium 5.1
Chloride 95 L
Carbon Dioxide 32 H
BUN 18 H
Creatinine 1.0
Glucose 136 H
Calcium 8.8
Vital Signs:
Vital Signs
Temp Pulse Resp BP Pulse Ox
36.6 C 75 24 126/73 96
12/30/23 04:46 12/30/23 04:00 12/30/23 04:46 12/29/23 22:21 12/29/23 20:04
I&O
12/29/23 12/30/23 12/31/23
06:59 06:59 06:59
Intake Total 340 / 340
Output Total 1800 / 1800 1100 / 1100
Balance -1800 / -1800 -760 / -760
Review of Systems
-
All other systems: Reviewed and negative
Physical Exam
-
General: Well Developed, Well Nourished, Comfortable, Respiratory Distress (chronic), Conversant and Morbidly Obese
HEENT: Normocephalic and Oxygen (2L NC)
Respiratory: Clear to Auscultation and Non Labored Respirations; Negative Accessory Resp Muscle Use
Cardiac: Regular Rhythm, S1/S2 and Murmur
GI: Soft, Nontender, Nondistended and Normal Bowel Sounds
Neuro: Awake and Alert
Psych: Calm and Intact Judgement/Insight
Data Reviewed
-
Labs: Labs Reviewed by me
[2023-12-30 08:34] VITALS: BP 149/84
[2023-12-30] MEDS: KCL 20 MEQ PO (09:22)
[2023-12-30] MEDS: LASIX 20 MG PO (09:22)
[2023-12-30] MEDS: GLUCOPHAGE 500 MG PO (09:23)
[2023-12-30] MEDS: PLAVIX 75 MG PO (09:23)
[2023-12-30] MEDS: ZESTRIL 2.5 MG PO (09:23)
[2023-12-30] MEDS: TOPROL XL 25 MG PO (09:23)
[2023-12-30] MEDS: HYDROPHOR 1 APPLIC TOPICAL (09:24)
[2023-12-30] MEDS: DESENEX/MITRAZOL/ZEASORB 1 APPLIC TOPICAL (09:25)
[2023-12-30] MEDS: LANTUS 0.149999999999999994 UNITS SC (09:48)
--- NOTE | 2023-12-30 09:56 | CM ---
CM following for DC planning needs.
DC order noted.
Plan for patient to transfer to [facility]. Bed available today.
Met w/ patient at bedside. She is aware/agreeable to transfer. She will notify her spouse directly.
Plan: [facility] via ambul.
RN report: [phone]
[2023-12-30] MEDS: PREVNAR 20 0.5 ML IM (10:09)
[2023-12-30] MEDS: FLUZONE HIGH-DOSE QUAD 2023-24 0.699999999999999956 ML IM (10:13)
--- NOTE | 2023-12-30 10:20 | PTCARENOTE ---
flu vaccine and pneumonia vaccine given as ordered, please see MAR. 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
[2023-12-30 11:26] VITALS: BP 126/88
[2023-12-30 11:55] LABS: Glucose - Point of Care 142 mg/dl (70-99)
--- NOTE | 2023-12-30 12:11 | W.DCSUMMARY ---
Discharge Summary
Discharge Data
Date of Admission: 12/25/23
Date of Discharge: 12/30/23
-
Pending Results: No
Hospital Course
Principal Diagnosis:
Mechanical fall
Symptomatic bradycardia
Chronic Diagnoses:�
Severe valvular heart disease: severe and severe MS
Chronic hypoxic respiratory failure/Obesity hypoventilation syndrome, on chronic 2L NC
IDDM
HTN
Psoriasis/wounds
Morbid obesity d/t excessive calories, BMI 49
Chronic pain syndrome
Consultations:�
Cardiology
Diabetes nurse practitioner
Procedures:�
Cardiac catheterization (on 12/25/23) and Pacemaker implant (12/28/23) for bradycardia.
Clinical course:�
This is a 68 year old female with past medical history as stated above, who was transferred from outside hospital due to symptomatic bradycardia. She initially presented with mechanical fall.
She was also noted to have bradycardia with reported 2-1 AVB.
She was transferred to [facility] for left heart cath and pacemaker placement.
Problem 1:
Symptomatic bradycardia with 2:1 AVB (HR down to 40s).
The patient underwent Cardiac catheterization (on 12/25/23) and Pacemaker implant (12/28/23) for bradycardia.
Her cardiac cath noted known severe aortic stenosis and noncritical CAD. She can follow-up outpatient for TAVR evaluation.
She can resumed Toprol-XL 25 mg post-procedure.
Problem 2:
IDDM with hypoglycemia.
The patient's prior to admission insulin was significantly reduced this admission due to hypoglycemia: HAND BINDERY ASSEMBLY WORKER Lantus 80 units BID to 15 units AM ONLY, and metformin 500 mg BID was added.
A1c was at 7.3%.
Problem 3:
Mechanical fall from initial presentation.
She was discharged to SNF per PT OT braeden.
As for the rest of her medical problems, they were stable during her hospital stay.
Discharge Plan
-
Patient Disposition: Intermediate/SNF
Discharge Diagnosis/Procedures: Cardiac catheterization (2/) and Pacemaker implant (12/28) for bradycardia
Condition: Fair
Diet: Low Cholesterol and Diabetic, Carb Controlled
Activity: No strenuous activity
Additional Activity: See attached instructions.
Driving Restrictions: No driving
Other Services: PT and OT
Wound Care: Wound Care Instructions
R lateral ankle, R lateral heel ulcers-clean with saline, pat dry, no sting barrier wipe (allow to dry), foam dressing, change q 3 days and prn loosned dressing.
L posterior upper calf ulcer-clean with saline, silicone border foam dressing, change q 3 days and prn loosned dressing.
R breast open areas-clean with saline or soap and water, silicone border foam, change q 3 days and prn loosened dressing.
Miconazole powder to breast folds, abdominal/groin folds, sacral/coccyx crease, affected areas bid.
Vaseline or Aquaphor ointment to dry skin areas bid.
Follow up with your manager pediatric for breast exam, mammogram.
Elevate heel/ankles off bed/recliner with pillow.
Pressure redistributing chair cushion (i.e. Air chair cushion).
Make appointment with a hall clerk.
Follow up at wound care center if needed, call for an appointment.
Activity Restrictions/Additional Instructions:
Your Lantus was decreased from 80 units twice daily to 15 units MORNING ONLY.
We have added metformin 500 mg twice daily for your diabetes.
Stand Alone Forms: DC Instructions- Cath/EP Lab, DC Inst - Implanted Device
Referrals:
[facility] [Outside] (FAX: [phone])
Zara Fenton CRNP [Specified Professional Personl] -
Gladys Alvarez NP [Specified Professional Personl] - 01/04/24 9:00 am (Post device incision check appointment)
Yrn Green MD [Family Provider] - in less than 1 week
Giacomo Hurley MD [Non-Admitting Privileges] - in four to six weeks
David Louie MD [Active] - 01/06/24 9:30 am
Prescriptions:
New
miconazole nitrate [Miconazorb AF] 2 % Powder
1 applic topical BID Qty: 85 0RF
white petrolatum [Hydrophor] 42 % Ointment
1 applic topical BID Qty: 100 0RF
furosemide 20 mg Tablet
20 mg PO DAILY Qty: 30 0RF
metformin 500 mg Tablet
500 mg PO BID@0800,1700 Qty: 60 0RF
metoprolol succinate 25 mg Tablet Extended Release 24 Hr
25 mg PO DAILY Qty: 30 0RF
Continued
citalopram 20 MG tablet
20 mg PO QPM
hydrocodone-acetaminophen 7.5-300 mg tablet
1 tab PO DAILY PRN (Reason: moderate pain)
Patient Comments:
05/19/2023: [facility]23[facility]
lisinop[facility] 5 mg tablet
2.5 mg PO DAILY
oxymetazoline [Afrin Sinus (oxymetazoline)] 0.05 % [place],Non-Aerosol
2 spray INTRANASAL Q12H
metoprolol succinate [Toprol XL] 25 mg Tablet Extended Release 24 Hr
25 mg PO DAILY
Changed
insulin glargine [Lantus Solostar U-100 Insulin] 100 UNITS/ML insulin pen
15 unit SC DAILY Qty: 0 0RF
Discontinued
metoprolol succinate [Toprol XL] 25 mg Tablet Extended Release 24 Hr
25 mg PO DAILY
Discharge Orders:
Discharge Patient (As Directed); Ordered 12/30/23
Ordered By: Brittney Rueda
Care Plan Goals
Care Plan Goals:
Problem: Readiness for enhanced knowledge related to diagnosis and treatment plan
Goal: Understand your diagnosis and treatment plan needs, including medications if applicable.
Instructions: Know your diagnosis, underlying causes and treatment plan options, including medications if applicable. Consult with your health care team to learn about your diagnosis and treatment plan, including medications if applicable.
--- NOTE | 2023-12-30 14:55 | PTCARENOTE ---
patient completed her CT TAVR.
--- NOTE | 2023-12-30 14:58 | PTCARENOTE ---
patient is being transported via acute care ambulance to [facility]. report was called to Gladys [place], . INT D/C'd,m telemetry D/C'd, personal belongings packed and sent with patient.
== END 2023-12-30 15:13 | DRG 243 ==
LOC: IVU 13:14
PROVIDERS: Internal Medicine Cardiovascular Disease; Nurse Practitioner; Nurse Practitioner Adult Health; Nurse Practitioner Gerontology; ADMITTING PHYSICIAN Internal Medicine Cardiovascular Disease; ATTENDING PHYSICIAN Internal Medicine; FAMILY PHYSICIAN Family Medicine
PROC: B2111ZZ Fluoroscopy of Multiple Coronary Arteries using Low Osmolar Contrast (ICD-10-PCS; 2023-12-25)
PROC: 4A023N7 Measurement of Cardiac Sampling and Pressure, Left Heart, Percutaneous Approach (ICD-10-PCS; 2023-12-25)
PROC: 02HK3JZ Insertion of Pacemaker Lead into Right Ventricle, Percutaneous Approach (ICD-10-PCS; 2023-12-28)
PROC: 3E0102A Introduction of Anti-Infective Envelope into Subcutaneous Tissue, Open Approach (ICD-10-PCS; 2023-12-28)
PROC: 02H63JZ Insertion of Pacemaker Lead into Right Atrium, Percutaneous Approach (ICD-10-PCS; 2023-12-28)
PROC: 0JH606Z Insertion of Pacemaker, Dual Chamber into Chest Subcutaneous Tissue and Fascia, Open Approach (ICD-10-PCS; 2023-12-28)
PROC: 4B02XSZ Measurement of Cardiac Pacemaker, External Approach (ICD-10-PCS; 2023-12-29)
PROC: 3E02340 Introduction of Influenza Vaccine into Muscle, Percutaneous Approach (ICD-10-PCS; 2023-12-30)
PROC: 3E0234Z Introduction of Serum, Toxoid and Vaccine into Muscle, Percutaneous Approach (ICD-10-PCS; 2023-12-30)
DX: I44.2 Atrioventricular block, complete (principal); E66.2 Morbid (severe) obesity with alveolar hypoventilation; J96.11 Chronic respiratory failure with hypoxia; Z68.42 Body mass index [BMI] 45.0-49.9, adult; I13.0 Hypertensive heart and chronic kidney disease with heart failure and stage 1 through stage 4 chronic kidney disease, or unspecified chronic kidney disease; E87.1 Hypo-osmolality and hyponatremia; R00.1 Bradycardia, unspecified; W18.30XA Fall on same level, unspecified, initial encounter; I08.0 Rheumatic disorders of both mitral and aortic valves; E11.649 Type 2 diabetes mellitus with hypoglycemia without coma; I25.10 Atherosclerotic heart disease of native coronary artery without angina pectoris; I50.9 Heart failure, unspecified; N18.31 Chronic kidney disease, stage 3a; L40.9 Psoriasis, unspecified; G89.4 Chronic pain syndrome; R82.90 Unspecified abnormal findings in urine; F32.A Depression, unspecified; F41.9 Anxiety disorder, unspecified; E87.5 Hyperkalemia; E78.00 Pure hypercholesterolemia, unspecified; M19.90 Unspecified osteoarthritis, unspecified site; Z99.81 Dependence on supplemental oxygen; Z87.891 Personal history of nicotine dependence; Z79.4 Long term (current) use of insulin; Z23 Encounter for immunization
CPT/HCPCS: 33208; 71045; 74174; 75572; 80048; 80061; 81003; 81015; 82947; 82962; 83036; 83735; 85027; 87070; 87077; 87086; 87186; 90662; 90677; 93005; 93454; 94640; 97162; C1785; C1892; C1894; C1898; G0008; G0009; Q9967

== ENCOUNTER 2024-02-04 09:24 | Inpatient (IN) | payer MEDICARE, BC, SELFPAY ==
[2024-01-27 12:34] VITALS: BMI 46.2
[2024-01-27 13:57] LABS: Urine Albumin Negative (Neg - Trace); Urine Bilirubin Negative (Negative); Urine Character Slightly Cloudy (Clear); Urine Color Yellow; Urine Glucose Negative (Negative); Urine Ketone Negative (Negative); Urine Leukocyte 2+ (Negative); Urine Nitrite Negative (Negative); Urine Occult Blood Trace (Negative); Urine Urobilinogen Negative (Neg - 1+)
[2024-01-27 13:58] LABS: % Basophils 0.9 % (0-2); % Eosinophils 5.6 % (0-6); % Immature Granulocytes 0.3 % (0-0.5); % Monocytes 6.1 % (1.7-9.3); % Neutrophils 73.1 % (42.2-75.2); Absolute Basophils 0.1 10^3/uL (0-0.2); Absolute Eosinophils 0.6 10^3/uL (0-0.7); Absolute Lymphocytes 1.4 10^3/uL (1.2-3.4); Absolute Monocytes 0.6 10^3/uL (0.1-0.6); Absolute Neutrophils 7.3 10^3/uL (1.4-6.5); Hematocrit 36.4 % (37.0-47.0); Hemoglobin 11.9 g/dL (12.0-16.0); Mean Corp Hgb Conc. 32.7 g/dL (33.0-37.0); Mean Corpuscular Hgb 28.5 pg (27.0-31.0); Mean Corpuscular Volume 87.1 fL (81.0-99.0); Mean Platelet Volume 11.4 fL (7.4-10.4); Nucleated Red Blood Cells % 0 %; Platelet Count 228 10^3/uL (130-400); Red Blood Cell Count 4.18 10^6/uL (4.20-5.40); Red Cell Dist. Width 14.5 % (11.5-14.5)
[2024-01-27 14:10] LABS: ALT (SGPT) 13 U/L (0-35); AST (SGOT) 19 U/L (14-36); Alkaline Phosphatase 96 U/L (38-126); Blood Urea Nitrogen 36 mg/dl (7-17); Calcium 9.4 mg/dl (8.4-10.2); Carbon Dioxide 29 mmol/L (22-30); Chloride 95 mmol/L (98-107); Direct Bilirubin 0.2 mg/dl (0.0-0.4); Estimated Creatinine Clearance 48 ml/min; Glucose 113 mg/dl (70-99); Potassium 5.1 mmol/L (3.5-5.1); Sodium 134 mmol/L (135-145); Total Bilirubin 0.9 mg/dl (0.2-1.3); Total Protein 7.9 g/dl (6.3-8.2); eGFR 35.13
[2024-01-27 14:15] LABS: NT-proBNP 1510 pg/ml
[2024-01-27 14:19] LABS: INR 1.09; PT 14.1 Sec (11.4-14.6)
[2024-01-27 14:20] LABS: Urine Bacteria Moderate (Negative); Urine Squamous Cell 16-20 /LPF (Few); Urine White Cell 50-60 /HPF (0-5)
[2024-01-27 14:20] LABS: APTT 33.2 Sec (23.4-35.0)
--- NOTE | 2024-01-27 14:51 | HPS.HSE ---
Family Physician
-
Family Physician: Yrn Green
Card: Dr. Tal Olson
Chief Complaint
-
Dyspnea on Exertion
History of Present Illness
Sabi Campuzano is a very pleasant, 68-year-old, morbidly obese female with known progressive aortic valve stenosis. Her most recent echocardiogram demonstrated a peak/mean gradient of 70/45 mmHg. JESS was calculated to be 0.45 and dimensionless
index was less than 0.2. Her left heart catheterization revealed two-vessel coronary disease involving the mid LAD which consisted of a 60% mid lesion, as well as proximal tandem lesions in the RCA and distal RCA both of which were considered
noncritical cath evaluation. From a symptom standpoint, she describe SOB and fatigue although is relatively limited in her activity. In comparison to 1 year ago, she feels worse. Her was present at consult and states she can no longer get up
the stairs without stopping. Functionally, she is very limited and presented to office in a wheelchair on oxygen from [facility]. Her case was reviewed by the Heart TEam at the SDM meeting and TAVR was felt to be the appropriate treatment for
her aortic stenosis.
Patient seen with her alongside her today in pre-admission testing. Reviewed risks of TAVR including bleeding and stroke. She has a PPM in place. Allowed for and answered question. Patient has an aspirin allergy. She states she has trouble
breathing and develops a rash. Discussed with Dr. Ibrahim and will start on Plavix 75mg daily (prescription given) for her TAVR. Patient to arrive to the cardiovascular and critical care pavilion on 02/04/2024 at 0930. Prescription given for facility
to arrange transfer. is in the process of appealing stay at rehab and if denied will pay for it until time of TAVR. Will follow up with facility next week to verify transfer for procedure.
Medical History
Past Medical History
Past Medical History: Reports HTN, Hypercholesterolemia, NIDDM and Other (Peripheral edema, kidney stones, CKD stage 3, ANGELA(not treated), hypoventilation syndrome on home O2 @2L/NC, h/o falls, Symptomatic Heart Block s/p PPM, Psoriosis, Chronic Pain
Syndrome, Chronic UTIs)
Past Surgical History: Reports Cardiac (PPM placed 12/28/2023)
Social History
Tobacco: Non-smoker
Alcohol: None
Drug: None
Personal:
Living: With Family
Employment: Not Employed
Family History
Family History: Not pertinent
Allergies / Home Medications
Allergies reflects when Allergies were last updated in [email or web address].
Home Medications with original date entered in [email or web address]
Allergy/Medication List:
ALLERGIES:
Vanocmycin - rash
Aspirin - rash, trouble breathing
Medications:
Citalopram Hydrobromide 20 MG Tablet take 1 tablet by oral route every day Oral.�������
Furosemide 40 MG Tablet 1 tablet Orally Once a day.�������
HYDROcodone-Acetaminophen 7.5-300 MG Tablet 1 tablet as needed Orally daily, Notes: prn.�������
Hydrophor(Emollient) - Ointment as directed Externally.�������
Lantus SoloStar(Insulin Glargine) 100 UNIT/ML Day Supply inject 15 units by subcutaneous route as per insulin protocol Subcutaneous daily in am.�������
Lisinopril 2.5 MG Tablet Take 1 tablet by mouth daily Oral Once a day.�������
metFORMIN HCl ER 500 MG Tablet Extended Release 24 Hour 1 tablet with evening meal Orally bid.�������
Metoprolol Succinate ER 25 MG Tablet Extended Release 24 Hour 1 tablet Orally Once a day.�������
Miconazole - Powder as directed.�������
Oxymetazoline HCl 0.05 % Solution 4 sprays (2 sprays in each nostril) Nasally Twice a day
Vitamin D 3 1.25mg daily
Calcium Carbonate 600mg q4H prn heart burn
Cholecalciferol 4000IU daily
Review of Systems
-
History Source: Patient
Constitutional: Reports No Symptoms
EENT: Reports No Symptoms
Respiratory: Reports Cough (chronic, occasional clear - yellow sputum)
Cardiac: Reports No Symptoms
Abdomen/GI: Reports Diarrhea (feels related to diet)
: Reports No Symptoms
Musculoskeletal: Reports Edema (bilateral LE)
Skin: Reports Other (skin tear left schmitz)
Neurological: Reports No Symptoms
Endocrine: Reports No Symptoms
Hematologic/Lymphatic: Reports No Symptoms
Psych: Reports No Symptoms
Physical Exam
Physical Exam
General: Well Developed, No Apparent Distress and Morbidly Obese
HEENT: NormoCephalic, Moist mucous membranes and Oxygen (2L/NC)
Respiratory: Clear, Non Labored Respirations and Other (diminished bilateral bases)
Cardiac: S1/S2, Regular Rhythm, Murmur (Grade II/) and Other (well healed PPM incision right chest wall)
Breast: Deferred by me
GI: Soft, Non Tender and Normal Bowel Sounds
Rectal: Deferred by Provider
Genito-urinary: Deferred by me
Musculoskeletal: No Edema
Skin: Warm, Dry and Other (foam dressing left schmitz. Bilateral groins are clean and dry)
Neuro: AO x 3 and Nonfocal/grossly intact
Psych: Calm and Intact Judgment/Insight
Laboratory Results
-
01/27/24 13:11
01/27/24 13:11
Laboratory Results
PT 14.1 Sec (11.4-14.6) 01/27/24 13:11
INR 1.09 01/27/24 13:11
APTT 33.2 Sec (23.4-35.0) 01/27/24 13:11
Total Bilirubin 0.9 mg/dl (0.2-1.3) 01/27/24 13:11
AST 19 U/L (14-36) 01/27/24 13:11
ALT 13 U/L (0-35) 01/27/24 13:11
Alkaline Phosphatase 96 U/L (38-126) 01/27/24 13:11
Data Reviewed
-
Diagnostic Radiology: Report Reviewed by me (Chest x-ray with no acute disease, right sided PPM)
Medical Tests (Nuc Med, Echo, EKG etc): Report Reviewed by me (EKG is NSR, currently not paced)
Lab Data: Discussed with Physician (Change in kidney function since previous discharge. Will continue to follow.)
Old Records: Reviewed [facility]
Impression/Plan
-
IMPRESSION:
Severe Aortic Stenosis
PLAN:
-Attempt Transfemoral TAVR with 26mm Evolut valve
-Continue Plavix daily
-Post op #1/#30 Echocardiogram
-Cardiac rehab consult
--- NOTE | 2024-01-27 15:28 | CM ---
CM met w/ patient, spouse during PATs for planned TAVR, 02/03.
Pt. has been at [facility] since 12/30 when she was DC'ed from . Plan was for DC to home 02/01 but spouse is appealing DC from rehab.
Prior to rehab, patient was residing in a private, 2 story home w/ 1st floor set up with spouse and adult-aged son. Functionally, patient requires assist fo RW or wheelchair to get around. Pt. is O2 dependent and O2 is supplied by [employer].
It is uncertain whether patient will require continued rehabilitation once DC'ed from . Will need to see how therapy fares on Thursday after TAVR. If DC'ed to home, will need to arrange VN (prefer [facility]) following CT Transitional Care RN.
Reviewed pre and post operative routines.
Soap, shower instructions and TAVR booklet reviewed and provided.
Discussed post op restrictions, MD appointments, Cardiac Rehab.
Plan is for TAVR 02/03.
DC plan is anticipated for home w/ spouse + CT Transitional Care RN then VN versus return to SNF.
Will follow closely.
[2024-01-28 08:54] LABS: Glycohemoglobin (HgbA1c) 6.8 % (4.0-5.6)
[2024-02-04] VITALS (15 sets, daily range): BP systolic 97–143; BP diastolic 42–95; BMI 45.4
--- NOTE | 2024-02-04 10:31 | CM ---
Patient in OR today for planned TAVR.
Pt. currently at [facility]. Plan is to return there upon DC for a short period of time before returning home. I discussed this with spouse this morning.
CM to follow.
[2024-02-04 10:42] LABS: Glucose - Point of Care 113 mg/dl (70-99)
[2024-02-04] MEDS: DUONEB 3 ML INH (10:50)
[2024-02-04] MEDS: ANCEF 10 IV ×2 (11:00→12:00)
--- NOTE | 2024-02-04 11:12 | W.CVOR.SURPR ---
CVOR Surgeon Immed Pre Op
-
I have examined this patient prior to performance of the scheduled procedure.
The patient's condition is unchanged from the time of the dictated/written History and
Physical and the patient is able to undergo the scheduled procedure.
TF TAVR, high risk
Yes to CPR/Meds/Shocks
Yes to CPB if issues can be fixed transcatheter
If considered futile by team then no sternotomy
She is leaving it up to the TAVR team to decide whether a sternotomy is considered futile
[2024-02-04] MEDS: BACTROBAN 2% OINTMENT 1 APPLIC NASAL (11:16)
[2024-02-04] MEDS: PLAVIX 75 MG PO (12:00)
[2024-02-04 13:58] LABS: ACT-LR - POC 360 Seconds (116-155)
--- NOTE | 2024-02-04 14:26 | W.PN.CT.SURG ---
CT Surgery Operative Note
-
OPERATIVE REPORT
Preoperative Diagnosis: Severe aortic valve stenosis, symptomatic
Postoperative Diagnosis: Same
Procedure(s) Performed: Right trans femoral TAVR with a 26 mm Medtronic Evolut FX device
Date of Procedure: 02/04/24
Comorbidities:
1. Severe symptomatic aortic stenosis, Symptomatic
2. Morbidly obese
3. COPD on oxygen
4. Moderately severe mitral valve stenosis with mitral annular calcification
5. Diabetes type 2
6. Hypertension
7. Hyperlipidemia
8. Obesity hypoventilation syndrome
9. Acute on chronic congestive heart failure with evidence of volume overload, LVEDP was 28 to 30 mmHg
Cardiac Surgeon: David Louie MD, MS
Shredder Tender Peat: Tal Ibrahim MD
Anesthesia: Conscious Sedation, Local
EBL: 200cc
Products: none
Implant: Medtronic Evolut FX 26mm SN: [id number]
Indication(s) for Procedures: 68-year-old female with severe aortic stenosis. Symptomatic. Multidisciplinary team discussion with conclusion that she was at high risk TAVR patient with very high likelihood of having paravalvular leak. She was seen
by both interventional cardiology, cardiology, and cardiac surgery. Her decision making ultimately was to pursue TAVR with limited to rescue status. CT-TAVR protocol revealed acceptable anatomy for a self-expanding TAVR valve.
Start time: 1320hrs
Deployment time: 1401hrs
End time: 1419hrs
Radiation Dose (mGy): 1257.31
DAP (cm2.Gy): 118.05
Fluoroscopy time (minutes): 11.1
Contrast volume (ml): 126
TAVR gradient (mmHg): 16mmHg
Heparin Dose: [id number]
Protamine Dose: 40mg
Final Valve Positioninmm NCC and 4mm LCC
Findings: Preoperative LVEF was 60% and was 60% following TAVR without inotropic support. Function was overall normal without regional wall motion abnormalities or dyskinesia. The aortic valve had at least moderate level of paravalvular leak which
was expected and located between the 2 columns of calcification in the LVOT. The diastolic blood pressure was satisfactory as were her hemodynamics not requiring inotropic or vasoactive support. There was a mobile calcification on the ventricular
side of the anterior mitral valve leaflet at the annular hinge point. This was present pre and post TAVR valve deployment. The patient did not require pacing postoperative and was in sinus rhythm. There was successful placement of 26 mm Evolut FX
TAVR valve without acute complications. LVEDP measurement pre-TAVR deployment was 28 consistent with acute on chronic congestive heart failure with volume overload. Lasix will be given post TAVR procedure.
Access:
1. Device -right common femoral artery, perclose x 2 +6 [place]serratian Angio-Seal
2. Pigtail -left common femoral artery + 6Fr angioseal
3. Transvenous Pacer -left common femoral vein
Description of Procedure: The patient was taken to the shift lab technician. Their identity and procedure to be performed were verified and they were positioned supine on the shift lab technician table. Induction via conscious sedation with local analgesia. The patient was
then prepped and draped from chin to thigh in a sterile fashion. A preoperative time-out was performed with all members of the team present. Using fluoroscopy, bilateral femoral heads and their margins were identified. Arterial and venous access
were done with a micropuncture needle with Seldinger technique under ultrasound guidance. Test pacing revealed capture with excellent threshold. Angiography confirmed proper puncture site and femoral artery integrity. Two Per-Close devices were
used on the TAVR side. An AL1 catheter was used to deliver a extrastiff wire and insertion of the working sheath. An AL1 catheter with a straight stiff wire was used to access the LV. This was then exchanged for a J-wire and a pigtail catheter.
LVEDP was measured here the valve was prepped and mounted on to the device carrier. An ACT of >250 was achieved. We verified x 3 under fluoroscopy that the valve was mounted correctly with paddles in appropriate position. We than set our parameters
to achieve a co-planar view with the pigtail positioned in the NCC. A second pigtail was inserted into the RCC to help orient us to the cusp overlap view. We advanced the device with it's in-line sheath into the descending thoracic aorta and over
the arch into the root and positioned across the aortic valve. Contrast fluoroscopy was used to visualize the prosthesis across the valve. We performed a quick pre-deployment time out. We verified positioning based on the pigtail and gentle contrast
puffs. The valve was slowly deployed to just before annular contact. We paused here and verified positioning in our cusp overlap view. The pacer was turned on and we continued deployment to annular contact. At this point the valve was functioning
and pacing was stopped. We slowly continued to deploy the valve until the crowns and paddles were free from the device. The deployment device was withdrawn into the descending thoracic aorta while maintaining wire access across the valve. A
transesophageal echocardiogram was performed . The pigtail was re-positioned at the level of the crown of the valve and angiography revealed excellent placement and seating of the valve at the annulus. There was moderate PVL which we anticipated,
however her diastolic blood pressure and hemodynamics were satisfactory and we opted to conclude the case. The device was removed from the groin as we cinched down the perclose devices while maintaining wire access. There was acceptable hemostasis.
The pigtail was repositioned into the descending/abdominal and runoff aortogram was performed. There was no significant stenosis or dissection of the bilateral iliofemoral systems with excellent runoff to the SFAs. All wires were removed and
perclose snugged and cut. There was acceptable hemostasis of bilateral groins.
All instrument, sponge, and needle counts were confirmed to be correct x 2 at the end of the operation. The patient was transferred to the cardiac intensive care unit in stable condition.
I, Dr. David Louie, was present, scrubbed for, and performed all critical elements of this procedure.
David Louie MD, MS
Cardiothoracic Surgeon
[facility]
This operative dictation was created using the Blend dictation system. Please excuse any grammatical, typographical, or 'sound alike' errors
--- NOTE | 2024-02-04 14:50 | ITS.CL.TAVR ---
Sheetmetal Worker - TAVR Report
TAVR PRocedure
Procedure Report:
TRANSCATHETER AORTIC VALVE REPLACEMENT REPORT
Date: 02/04/2024
Referring physician: Jose Miguel Kauffman M.D.
Preop diagnosis: Severe aortic valve stenosis with extensive calcification of the mitral annulus extending to end continuous with the aortic annulus.
Postop diagnosis: Severe aortic valve stenosis with extensive calcification of the mitral annulus extending to and continuous with the aortic annulus.
Procedure: Transcatheter aortic valve replacement (TAVR) using a #26 Medtronic CoreValve Evolut Pro.
Operators: aTl Ibrahim DO, David Louie M.D.
Findings: Severely calcified and stenotic aortic valve.
Anesthesia: Concious sedation was provided by the anesthesia staff.
Estimated blood loss: Negligable.
Complications: None.
Condition: Stable
Procedure:
The patient was brought to the cardiac labor specialist after consent and was prepped and draped in standard sterile fashion. Conscious sedation was provided by the anesthesia staff. After a 'Time Out,' bilateral common femoral arteries and the left
common vein were access using a modified Seldinger technique with a micropuncture kit under ultrasound guidance. A 6 [place] sheath was placed in the left femoral vein. Angiography performed through the micropuncture sheath confirmed satisfactory
arterial placement in the right and left common femoral arteries. The micropuncture sheath was replaced with a 6Fr sheath in the left common femoral artery. In the right common femoral artery, the micropuncture sheath was removed and an 8 [place]
dilator was advanced over the wire. The dilator was removed and the right common femoral artery was preclosed with 2 Perc-Close devices. An 8 [place] sheath was placed in the right common femoral artery. A temporary pacing wire was advanced through
the left femoral vein and into the right ventricle. The pacemaker demonstrated good capture and was set to back up. A 5Fr pigtail catheter was advanced through the left femoral sheath and seated in the non-coronary cusp. The valve overlap (PERDOMO
32, CAU 26) and three cusp co-planar (JAYLA 17, CAU 34) angles were confirmed on aortography.
An AL-1 catheter was advanced through the 8Fr sheath, the J wire was exchanged for a Lunderquist wire and the catheter and the 8 Fr sheath was removed. A 12 Fr dilator was advanced over the Lunderquist wire to the descending aorta. The dilator was
removed and a 14 Fr Cook sheath was placed. The CoreValve was prepared on the back table and then inspected under fluoroscopy. Infolding of the valve was no higher than the 4th node. The AL-1 catheter was advanced over the Lunderquist wire, which
was then removed. The catheter was flushed and a straight wire was advanced through the AL-1 catheter. The straight wire was used to cross the valve, and the AL-1 catheter was prolapsed into the left ventricle. The straight wire was exchanged for
an exchange length J-wire and the AL-1 catheter was subsequently exchanged for a 5 Fr pigtail catheter. The double curve Lunderquist wire was advanced through the pigtail catheter and placed in the apex of the left ventricle. The pigtail catheter
was removed.
The Cook sheath was removed and the in-line sheath was advanced over the Lunderquist wire through the RCFA into the descending aorta. The CoreValve was then advanced over the aortic arch and into the left ventricle. In the cusp overlap view, the
valve was slowly deployed to the point of flowering. The patient was rapidly paced in a de-escalating rate (from 140 bpm to 80 bpm) as the valve was deployed through the rumble strips to 80%. Injection confirmed a non-coronary cusp implant depth
of 4 mm. The image intensifier was taken to the 3 cusp overlap view to remove paralax. Injection in this view confirmed left coronary cusp implant depth of 3 mm. The decision was made to proceed with full deployment. The delivery handle with
slowly rotated counter clockwise until both paddles were released from the superior aspect of the valve. The Lunderquist wire was partially withdrawn to lift the nosecone of the valve delivery device. The delivery device was withdrawn to the
descending aorta and re-assembled. Transesophageal echocardiogram showed moderate paravalvular insufficiency. Aortogram showed good valve deployment and mild aortic valve insufficiency. Mean gradient across the valve was 16 mmHg by echo. The
patient had been discussed extensively in preoperative meeting and planning. Given the nature of her mitral annular calcification that extended into the aortic annulus, we were aware that there would be valve deformation as well as likely
paravalvular leak in between these 2 bar of calcium. We felt that postdilation would potentially harm the patient by rupturing the aortic annulus and/or the atrial mitral curtain. Given the patient's overall health status, we believe that moderate
PVL or less would be considered a clinical success, particularly with this level of gradient. The decision was made to terminate the procedure at this time and not proceed with post dilation.
The inline sheath was removed over the Lunderquist wire and hemostasis was achieved using the two Perc-Close devices. Lower extremity angiography showed excellent hemostasis and good runoff without evidence perforation or extravasation. There was
some persistent oozing from the device site, which was subsequently sealed with a 6 Angio-Seal. The pigtail catheter was removed over a J-wire and the left KINDERGARTEN PARAPROFESSIONAL was closed using a 6-Fr Angioseal. There was no evidence of consistent pacing
requirement. The temporary pacer was removed. The venous sheath was removed. Manual pressure was applied with good hemostasis of the left venous access. The patient was taken to recovery in good condition.
Implant Depth
Non-Coronary (mm): 4
Left Coronary (mm): 3
Radiation
Dose (mGy): 1257.31
DAP (cm2.Gy): 118.05
Fluoroscopy time (minutes): 11.1
TAVR Echo Gradient (mmHg): 16
LV (s/x, mmHg): 161/27
TAVR Cath Gradient (mmHg): Not obtained.
Conclusions:
1. Successful placement of # 26 CoreValve Evolute Pro using a left percutaneous transfemoral approach with no acute complications.
2. Acute on chronic heart failure with elevated filling pressures (LVEDP = 27 at 129.3 kg).
Tal Ibrahim DO, FACC, FACP
Copy: Jose Miguel Kauffman M.D., Yrn Green M.D.
--- NOTE | 2024-02-04 15:09 | W.PN.UPDATE ---
Update Note
Progress Note Update
Reviewed Ms. Campuzano with the heart team in the preTAVR SDM meeting and confirmed 26mm Evolut via transfemoral access. Discussed high risk TAVR. Patient will resume plavix post TAVR. LVEDP 27mmHg. #26mm Evolut (serial# [id number]) successfully
deployed via right transfemoral access. Post implant MG 16 mmHg.
[2024-02-04 15:30] LABS: Glucose - Point of Care 115 mg/dl (70-99)
--- NOTE | 2024-02-04 16:35 | PTCARENOTE ---
Rec'd report from Jonelle in blood and plasma laboratory assistant; Rec'd pt AAOx3 w/no CP or SOB. Pt w/VS stable BP being checked on pt's calf, BP on arrival 122/78. Pt 97% on 2L O2 via NC which pt uses at home & is her baseline. Lungs diminished but clear. Bilat groin sites
w/dressings intact. R groin dressing w/marked area of sanguineous drainage, slightly increased from prev nurse's assessment. Bilat pedal pulses palpable. Oriented pt to the room & advised pt of bedrest until at least 1899. This RN also explained to
pt about diet restriction until 1829 due to having been intubated. Pt tolerating ice chips. Pt w/purewick in place & pt voiding adequately at this time. Pt w/call aguilar within reach & no addtl needs at this time. Plan of care ongoing.
[2024-02-04] MEDS: NORCO 7.5/325 1 TABLET PO (18:19)
[2024-02-04] MEDS: CELEXA 20 MG PO (18:19)
[2024-02-04] MEDS: LASIX 20 MG IV (18:19)
[2024-02-04] MEDS: ANCEF 5 IV (18:19)
[2024-02-04] MEDS: FLUSH (NSS) 2 FLUSH IV (18:20)
[2024-02-04 18:38] LABS: Glucose - Point of Care 163 mg/dl (70-99)
--- NOTE | 2024-02-04 19:31 | PTCARENOTE ---
Pt's R groin dressing w/increased oozing since coming from recovery. This RN changed R groin dressing at 1830 & nickel sized blood clot noted on saturated dressing. New sterile gauze dressing applied w/hemostasis pad & tegaderm dressing covering.
Upon repeat assessment w/oncoming nightshift RN, dressing w/some new sanguineous oozing. Dressing intact. CT PA notified. Plan of care ongoing.
--- NOTE | 2024-02-04 19:45 | PTCARENOTE ---
Assumed care of patient at 1900, vs downloaded by me prior to that time were from previous shift.
[2024-02-04] MEDS: DESENEX/MITRAZOL/ZEASORB 1 APPLIC TOPICAL (20:28)
[2024-02-04 21:57] LABS: Glucose - Point of Care 256 mg/dl (70-99)
[2024-02-04 22:11] LABS: Hematocrit 35.5 % (37.0-47.0); Hemoglobin 11.7 g/dL (12.0-16.0); Mean Corpuscular Hgb 28.7 pg (27.0-31.0); Mean Platelet Volume 10.6 fL (7.4-10.4); Platelet Count 225 10^3/uL (130-400); Red Blood Cell Count 4.08 10^6/uL (4.20-5.40); Red Cell Dist. Width 14.4 % (11.5-14.5); White Blood Cell Count 8.7 10^3/uL (4.8-10.8)
--- NOTE | 2024-02-04 23:54 | PTCARENOTE ---
Patient denies any complaints of pain or discomfort. Right groin site has continued to ooze, Matthew BALING MACHINE OPERATOR aware and examined site, and cbc drawn as ordered. Right groin site dressing changed at 5 for slow ooze after applying manual pressure for 10
minutes. Hemostasis pad/4x4's and tegaderm applied. No hematoma or ecchymosis at right groin site. Remains V-Paced on the monitor in the 80's to 90's.
[2024-02-05] MEDS: TYLENOL 650 MG PO (00:53)
[2024-02-05 03:19] VITALS: BP 130/46
[2024-02-05 04:19] LABS: Hematocrit 34.7 % (37.0-47.0); Hemoglobin 11.2 g/dL (12.0-16.0); Mean Corp Hgb Conc. 32.3 g/dL (33.0-37.0); Mean Corpuscular Hgb 28.1 pg (27.0-31.0); Mean Corpuscular Volume 87.2 fL (81.0-99.0); Mean Platelet Volume 10.9 fL (7.4-10.4); Platelet Count 240 10^3/uL (130-400); Red Blood Cell Count 3.98 10^6/uL (4.20-5.40); Red Cell Dist. Width 14.2 % (11.5-14.5); White Blood Cell Count 9.5 10^3/uL (4.8-10.8)
[2024-02-05 04:45] LABS: Blood Urea Nitrogen 39 mg/dl (7-17); Calcium 8.8 mg/dl (8.4-10.2); Carbon Dioxide 27 mmol/L (22-30); Chloride 97 mmol/L (98-107); Estimated Creatinine Clearance 54 ml/min; Glucose 169 mg/dl (70-99); Sodium 132 mmol/L (135-145); eGFR 41.24
--- NOTE | 2024-02-05 06:07 | W.PN.CT ---
Documented by User: [email or web address] Tucker 02/05/24 06:22
Today's Communication / Plan
-
-POD #1
-dressing changed 2/2 serosang fluid saturation, small clot. H&H stable x2, VSS, no palpable hematoma, DP pulses intact
-remains paced rhythm
-Echo/CXR today
-current meds: Plavix, lasix, metoprolol 25, Celexa, lisinopril, Glargine 15 u
-dispo planning
Assessment / Plan
-
Severe s/p R TF TAVR #26 mm Medtronic Evolut FX on 02/04/[address] Louie POD #1
Post WILEY LVEF 70-75%, mod PVL, MG 16
-MS
-CAD
-HTN
-CKD III
-IDDM
-HLD
-ANGELA
-chronic hypoxemic respiratory failure
-CHB s/p PPM
-chronic pain
-chronic UTI
Subjective
Procedure
s/p R TF TAVR #26 mm Medtronic Evolut FX on 02/04/24
-
Date of Service: February 05, 2024
RN notified of R groin site dressing saturated. No palpable hematoma, +1 DP b/l. H&H stable, VSS. otherwise no events
Objective Data
-
Lab Results
02/05/24 03:57
02/05/24 03:57
PT 14.1 Sec (11.4-14.6) 01/27/24 13:11
INR 1.09 01/27/24 13:11
APTT 33.2 Sec (23.4-35.0) 01/27/24 13:11
Vital Signs
Vital Signs
Temp Pulse Resp BP Pulse Ox
97.5 F 80 20 130/46 96
02/05/24 05:26 02/05/24 04:00 02/05/24 05:26 02/05/24 03:19 02/05/24 05:26
CT Intake/Output/Weight
02/04/24 02/04/24 02/05/24
06:59 18:59 06:59
Intake Total 1000 / 1480 480 / 1480
Output Total 525 / 1575 1050 / 1575
Balance 475 / -95 -570 / -95
SaO2: 96
Physical Exam
-
General: Awake, Oriented and AOx3
Cardiovascular: Regular rate & rhythm, No Murmurs and No Rub
Respiratory: Decreased Breath Sounds
Incision: Clean and Weeping
Extremities: Edema +1
Data Reviewed
-
Lab Results: Results Reviewed
Medications: Active Meds Reviewed
Chest X-Ray: Report Reviewed
ECG: Report Reviewed

Documented by User: WANDA Choudhury 02/05/24 15:40
Assessment / Plan
-
Severe s/p R TF TAVR #26 mm Medtronic Evolut FX on 02/04/[address] Louie POD #1
Post WILEY LVEF 70-75%, mod PVL, MG 16
-MS
-CAD
-HTN
-CKD III
-IDDM
-HLD
-ANGELA
-chronic hypoxemic respiratory failure
-CHB s/p PPM
-chronic pain
-chronic UTI
- acute on chronic systolic HF
--- NOTE | 2024-02-05 07:59 | PTCARENOTE ---
CVPA in room this am, right groin continues to ooze, manual pressure applied by CVPA, closure pad and pressure dsg. applied. patient will be on bedrest for 2 hours.
[2024-02-05 08:04] LABS: Glucose - Point of Care 112 mg/dl (70-99)
[2024-02-05 08:12] VITALS: BP 146/51
[2024-02-05] MEDS: PLAVIX 75 MG PO (08:48)
[2024-02-05] MEDS: ZESTRIL 2.5 MG PO (08:48)
[2024-02-05] MEDS: LANTUS 0.149999999999999994 UNITS SC (08:48)
[2024-02-05] MEDS: TOPROL XL 25 MG PO (08:49)
[2024-02-05] MEDS: VITAMIN D3 (cholecalciferol) 125 MCG PO (08:49)
[2024-02-05] MEDS: LASIX 40 MG PO (08:49)
[2024-02-05] MEDS: DESENEX/MITRAZOL/ZEASORB 1 APPLIC TOPICAL (08:49)
[2024-02-05] MEDS: CLARITIN 10 MG PO (08:49)
--- NOTE | 2024-02-05 09:11 | W.PN.CD ---
Today's Communication / Plan
-
TTE pending
if stable then likely d/c
Impression / Plan
-
68-year-old female with severe status post TAVR yesterday. She had residual moderate paravalvular leak.
Severe s/p TAVR 26mm Medtronic Evolut FX
- TTE pending
- feeling well if TTE stable likely d/c today
- s/p PPM
CAD
-metop
- plavix
HTN
- lasix lisinopril
DM2
- insulin prn
morbid obesity affecting all aspects of care
Physical Exam
Vital Signs/Labs
Vital Signs
Temp Pulse Resp BP Pulse Ox
97.7 F 70 20 146/51 98
02/05/24 08:10 02/05/24 08:49 02/05/24 08:10 02/05/24 08:49 02/05/24 08:10
02/04/24 02/05/24 02/06/24
06:59 06:59 06:59
Actual Weight 285 lb 7.978 oz
02/05/24 03:57
02/05/24 03:57
PT 14.1 Sec (11.4-14.6) 01/27/24 13:11
INR 1.09 01/27/24 13:11
APTT 33.2 Sec (23.4-35.0) 01/27/24 13:11
01/27/24
13:11
Auk-D-Neuifieblws Pept 1510
Physical Exam
Constitutional: No acute distress
EENT: Anicteric
Cardiovascular: Rhythm & rate is regular
Respiratory: Respiratory effort normal and Lungs clear to auscul.
GI: Soft
Neuro/Psych: AO x 3
Data Reviewed
-
Date of Service: February 05, 2024
EKG: Tracing Personally Visualized and interpreted
Echo: Tracing Personally Visualized and interpreted
Labs: Labs Reviewed by me
[2024-02-05 11:23] VITALS: BP 140/58
[2024-02-05 11:40] VITALS: BP 140/58; PULSE 69; O2SAT 98
--- NOTE | 2024-02-05 11:42 | W.PN.ANS.POP ---
Anesthesia Post Operative
- Anesthesia Post Op Note
Vital Signs Stable-See Nursing Note: Yes
Airway Patent: Yes
Adequate Pain Control: Yes
Change in Mental Status: No
Current Postoperative Nausea & Vomiting: No
Anesthesia Complications: No
General Anesthetic Recall: No
Unplanned Admission: No
Post Op Hydration Adequate: Yes
[2024-02-05 11:46] VITALS: BP 140/58; PULSE 69
[2024-02-05 12:07] LABS: Glucose - Point of Care 134 mg/dl (70-99)
--- NOTE | 2024-02-05 12:29 | W.DCSUMMARY ---
Discharge Summary
Discharge Data
Date of Admission: 02/04/24
Date of Discharge: 02/05/24
-
Pending Results: Yes
Hospital Course
Primary care physician:
Dr. Yrn Green
Outpatient washing machine striper:
Dr. Giacomo Hurley
Inpatient consultants:
CBC
Procedures:
1. Right trans femoral transcatheter aortic valve replacement with a 26 mm Medtronic Evolut FX device
Primary Diagnosis:
1. Severe aortic stenosis
Secondary Diagnoses:
1. Morbid obesity
2. Chronic obstructive pulmonary disease on oxygen
3. Moderate to severe mitral valve stenosis with mitral annular calcification
4. Type 2 diabetes
5. Hypertension
6. Hyperlipidemia
7. Obesity hypoventilation syndrome
8. Acute on chronic congestive heart failure with evidence of volume overload
HPI: 68-year-old female with severe aortic stenosis presents electively for transcatheter aortic valve replacement with Dr. Louie on February 03.
Hospital course: Patient was admitted electively for a transfemoral transcatheter aortic valve replacement with Dr. Louie. After the procedure patient was recovered in the [facility] holding area. Postprocedure she received 20 mg of IV Lasix and was
sent to the IVU for the rest of her recovery. Overnight she was noted to have increased bleeding from her right groin. Manual pressure was applied and no hematoma was palpated. Hemoglobin was stable on repeat CBCs and pressure dressing was
applied. Groin is now stable. Patient was evaluated by physical therapy and Occupational Therapy and patient was deemed appropriate to return to [facility]. Patient postprocedural chest x-ray remained stable and repeat echocardiogram showed LV
ejection fraction is 55-60% by Em's method of discs. Severe mitral stenosis. No mitral regurgitation is seen. S/p 26 mm evolute TAVR is seated well with peak/mean gradients of 27/19 mmHg. Mild aortic regurgitation. Patient was deemed stable
for discharge to [facility].
Home medication changes:
See below
Discharge Plan
-
Patient Disposition: Skilled Nursing/SNF
Discharge Diagnosis/Procedures: TF-TAVR
Condition: Good
Diet: Low Fat, Low Cholesterol, 2 Gram Sodium and Diabetic, Carb Controlled
Activity: As tolerated
Driving Restrictions: No driving for 1 week
Bathing Restrictions: OK to Shower
Others Tests: Please call your washing machine striper office to schedule a follow up Echocardiogram for 30 days after your TAVR procedure.
Other Services: Cardiac Rehab
Wound Care: Please do not apply lotions, creams or powders to groin areas. Please monitor for increased pain, swelling, drainage or redness. Notify your doctor if any occur.
Specialty Instructions: Weigh Daily- Call MD for wt gain/loss 3 lbs overnight/5 lbs in 1 week
Activity Restrictions/Additional Instructions:
Please call to make appointments for Phase II Cardiac Rehab (When SNF/PT/OT are no longer needed):
1. [facility]: [phone]
2. [facility]: [phone] [facility]
Referrals:
[facility] [Outside]
Tal Olson DO [Non-Admitting Privileges] - 02/26/24 3:00 pm
Yrn Green MD [Family Provider] -
Prescriptions:
New
acetaminophen 325 mg Tablet
650 mg PO Q4HPRN PRN (Reason: [place], mild pain, or fever >101F) Qty: 0 0RF
Insulin Glargine Lantus [Lantus] 15 UNITS
Subcutaneous Insulin Syringe [Syringe-Insulin] 0 UNIT
As Directed mls/hr SC DAILY
Reason for use: Diabetes
Ordered By: Marisela Whatley CRNP
Last Taken: 02/05/24 08:48 0.15 mls
Continued
citalopram 20 MG tablet
20 mg PO QPM
Patient Comments:
HAVE NOT RECEIVED MEDICATION LIST FROM [facility]. THIS IS THE MEDICATION LIST THAT PT WAS DISCHARGED WITH ON 12/30/23.
hydrocodone-acetaminophen 7.5-300 mg tablet
1 tab PO DAILY PRN (Reason: moderate pain)
Patient Comments:
HAVE NOT RECEIVED MEDICATION LIST FROM [facility]. THIS IS THE MEDICATION LIST THAT PT WAS DISCHARGED WITH ON 12/30/23.
lisinopril 5 mg tablet
2.5 mg PO DAILY
Patient Comments:
HAVE NOT RECEIVED MEDICATION LIST FROM [facility]. THIS IS THE MEDICATION LIST THAT PT WAS DISCHARGED WITH ON 12/30/23.
oxymetazoline [Afrin Sinus (oxymetazoline)] 0.05 % Salvo,Non-Aerosol
2 spray INTRANASAL Q12H PRN (Reason: Congestion)
Patient Comments:
HAVE NOT RECEIVED MEDICATION LIST FROM [facility]. THIS IS THE MEDICATION LIST THAT PT WAS DISCHARGED WITH ON 12/30/23.
miconazole nitrate [Miconazorb AF] 2 % Powder
1 applic topical BID Qty: 85 0RF
Patient Comments:
HAVE NOT RECEIVED MEDICATION LIST FROM [facility]. THIS IS THE MEDICATION LIST THAT PT WAS DISCHARGED WITH ON 12/30/23.
metoprolol succinate [Toprol XL] 25 mg Tablet Extended Release 24 Hr
25 mg PO DAILY
Patient Comments:
HAVE NOT RECEIVED MEDICATION LIST FROM [facility]. THIS IS THE MEDICATION LIST THAT PT WAS DISCHARGED WITH ON 12/30/23.
metformin 500 mg Tablet
500 mg PO BID@0800,1700 Qty: 60 0RF
Patient Comments:
HAVE NOT RECEIVED MEDICATION LIST FROM [facility]. THIS IS THE MEDICATION LIST THAT PT WAS DISCHARGED WITH ON 12/30/23.
insulin glargine [Lantus Solostar U-100 Insulin] 100 UNITS/ML insulin pen
15 unit SC DAILY Qty: 0 0RF
Patient Comments:
HAVE NOT RECEIVED MEDICATION LIST FROM [facility]. THIS IS THE MEDICATION LIST THAT PT WAS DISCHARGED WITH ON 12/30/23.
furosemide 40 mg Tablet
40 mg PO DAILY
calcium carbonate 600 mg calcium (1,500 mg) Tablet
600 mg PO Q4H PRN (Reason: heart burn)
cholecalciferol (vitamin D3) [Vitamin D3] 125 mcg (5,000 unit) Tablet
125 mcg PO DAILY
Rx Instructions:
give every thursday for 8 weeks
cholecalciferol (vitamin D3) 100 mcg (4,000 unit) Tablet
100 mcg PO DAILY
clopidogrel 75 mg Tablet
75 mg PO DAILY
guaifenesin 100 mg/5 mL Liquid
200 mg PO Q6HPRN PRN (Reason: cough)
loratadine [Claritin] 10 mg Tablet
10 mg PO DAILY
white petrolatum [Hydrophor] 42 % Ointment
1 applic TOPICAL BID PRN (Reason: dryness)
Discharge Orders:
Discharge Patient (As Directed); Ordered 02/05/24
Ordered By: Marisela Whatley
Care Plan Goals
Care Plan Goals:
Problem: Readiness for enhanced knowledge related to diagnosis and treatment plan
Goal: Understand your diagnosis and treatment plan needs, including medications if applicable.
Instructions: Know your diagnosis, underlying causes and treatment plan options, including medications if applicable. Consult with your health care team to learn about your diagnosis and treatment plan, including medications if applicable.
[2024-02-05 13:23] VITALS: BMI 45.6
--- NOTE | 2024-02-05 13:48 | PTCARENOTE ---
patient will be discharged to [facility], telemetry D/C'd, INT x 2 D/C'd. will call report and will be picked up by wheelchair van at 1430.
--- NOTE | 2024-02-05 15:16 | CM ---
pt medically cleared for transf back to [facility] for SNF rehab. called in payment for wc van to acute care. pt agreeable to this plan.
--- NOTE | 2024-02-05 15:30 | PN.CDI ---
CDI
- -
CDI:
Physician Documentation Request
Admit Date: 02/04/24 09:24
Dear Doctor Louie
Please review the following and provide your response in the progress notes.
Clinical Indicators:
Per OR report--'Acute on chronic congestive heart failure with evidence of volume overload, LVEDP was 28 to 30 mmHg'
PBnP pre admission 1510, lasix 20 iv x1 and then 40 po.
Echo 02/04: LVEF 55-60%
Please provide further specificity regarding the most likely type of CHF you are evaluating, treating or monitoring.
Type
Systolic
Diastolic
Combined Systolic/Diastolic
Other
Unable to Determine
Use of terms such as suspected, likely, concern for, or probable (associated with a specific diagnosis that is being evaluated, monitored, or treated as if it exists) are acceptable and can be coded in the inpatient setting, when documented at the
time of discharge.
Thank you,
Lorna Luna
CDI Specialist
Please use your independent medical judgment in providing your response.
== END 2024-02-05 14:40 | DRG 266 ==
LOC: IVU 09:24
PROVIDERS: Anesthesiology; Nurse Practitioner; ADMITTING PHYSICIAN Thoracic Surgery (Cardiothoracic Vascular Surgery); CONSULT PHYSICIAN Internal Medicine Cardiovascular Disease; FAMILY PHYSICIAN Family Medicine
PROC: B24BZZ4 Ultrasonography of Heart with Aorta, Transesophageal (ICD-10-PCS; 2024-02-04)
PROC: 02RF38Z Replacement of Aortic Valve with Zooplastic Tissue, Percutaneous Approach (ICD-10-PCS; 2024-02-04)
DX: I08.0 Rheumatic disorders of both mitral and aortic valves (principal); Z00.6 Encounter for examination for normal comparison and control in clinical research program; I50.23 Acute on chronic systolic (congestive) heart failure; E66.2 Morbid (severe) obesity with alveolar hypoventilation; I13.0 Hypertensive heart and chronic kidney disease with heart failure and stage 1 through stage 4 chronic kidney disease, or unspecified chronic kidney disease; Z68.42 Body mass index [BMI] 45.0-49.9, adult; J96.11 Chronic respiratory failure with hypoxia; Z99.81 Dependence on supplemental oxygen; J44.9 Chronic obstructive pulmonary disease, unspecified; E11.22 Type 2 diabetes mellitus with diabetic chronic kidney disease; N18.30 Chronic kidney disease, stage 3 unspecified; E78.00 Pure hypercholesterolemia, unspecified; I25.10 Atherosclerotic heart disease of native coronary artery without angina pectoris; G89.4 Chronic pain syndrome; Z95.0 Presence of cardiac pacemaker; Z79.84 Long term (current) use of oral hypoglycemic drugs; Z79.02 Long term (current) use of antithrombotics/antiplatelets
CPT/HCPCS: 33361; 36415; 71045; 71046; 80048; 80053; 81003; 81015; 82248; 82962; 83036; 83880; 85025; 85027; 85347; 85610; 85730; 86850; 86900; 86901; 87070; 87086; 93005; 93306; 93312; 93320; 93325; 94640; 97163; 97167; C1760; C1769; C1894; Q9967